=== PATIENT | female | born 1965 | race Caucasian/White ===

== ENCOUNTER → 2019-09-26 11:47 | Outpatient (BNVA) | payer OTHER, SELFPAY | PROVIDERS: Visit Provider Nurse Practitioner | DX: M79.641 Pain in right hand (principal); S39.012A Strain of muscle, fascia and tendon of lower back, initial encounter; M48.061 Spinal stenosis, lumbar region without neurogenic claudication; M47.816 Spondylosis without myelopathy or radiculopathy, lumbar region; X58.XXXA Exposure to other specified factors, initial encounter | CPT/HCPCS: 72100; 73130 ==

== ENCOUNTER → 2019-11-09 11:56 | Outpatient (BNVA) | payer OTHER, SELFPAY | PROVIDERS: Visit Provider Nurse Practitioner Family | DX: I10 Essential (primary) hypertension (principal); D64.9 Anemia, unspecified; G25.81 Restless legs syndrome; E03.9 Hypothyroidism, unspecified; E11.9 Type 2 diabetes mellitus without complications | CPT/HCPCS: 80053; 81001; 82607; 82728; 83036; 83540; 84439; 84443; 84481; 85025 ==

== ENCOUNTER → 2019-11-14 10:45 | Outpatient (BNVA) | payer OTHER, SELFPAY | PROVIDERS: Visit Provider Nurse Practitioner Family | DX: E78.5 Hyperlipidemia, unspecified (principal); M54.9 Dorsalgia, unspecified; M62.830 Muscle spasm of back; E11.9 Type 2 diabetes mellitus without complications | CPT/HCPCS: 80061 ==

== ENCOUNTER → 2020-06-10 09:47 | Outpatient (BNVA) | payer OTHER, SELFPAY | PROVIDERS: Visit Provider Nurse Practitioner Family | DX: E11.9 Type 2 diabetes mellitus without complications (principal); I10 Essential (primary) hypertension; E03.9 Hypothyroidism, unspecified; E78.5 Hyperlipidemia, unspecified; E55.9 Vitamin D deficiency, unspecified; E78.2 Mixed hyperlipidemia | CPT/HCPCS: 80053; 80061; 81003; 82306; 83036; 84443; 85025 ==

== ENCOUNTER 2020-07-01 10:27 | Outpatient (CLI) | payer OTHER, SELFPAY ==
--- NOTE | 2020-07-01 10:30 | MM_ITS ---
WS: [id number] Exam: [place] [id number] Date/Time of Exam: 07/01/2020 10:31 AM Reason For Exam: Z12.31 - Encounter for screening mammogram for malignant neoplasm of breast VIEWS: MLO and CC views both breasts. Comparison made with prior exam of 09/11/2015. Findings: There was no sign of mass, architectural distortion or suspicious calcification in either breast. Sc attered fibroglandular densities MM/[place] [id number] Impression: BI-RADS: 2-Benign FOLLOW-UP: 1 Year Follow-up This mammogram was also analyzed by the Computer Aided Detection System R2 Imag e Flower Grower.
== END 2020-07-01 10:28 | disposition home or self-care (01) ==
LOC: RADSHAW 10:28
PROVIDERS: PCP Nurse Practitioner Family; Visit Provider Nurse Practitioner Family
DX: Z12.31 Encounter for screening mammogram for malignant neoplasm of breast (principal)
CPT/HCPCS: 77067

== ENCOUNTER → 2020-10-24 16:43 | Outpatient (BNVA) | payer OTHER, SELFPAY | PROVIDERS: PCP Nurse Practitioner Family; Visit Provider Nurse Practitioner Family | DX: M25.562 Pain in left knee (principal) | CPT/HCPCS: 73562 ==

== ENCOUNTER 2020-11-11 10:51 | Outpatient (CLI) | payer OTHER, SELFPAY ==
--- NOTE | 2020-11-11 11:00 | MR_ITS ---
WS: [id number] MRI LEFT KNEE HISTORY: M25.562 - Pain in left knee COMPARISON: 10/24/2020 Anterior cruciate ligament: Intact. Posterior cruciate ligament: Intact. Medial collateral ligament: Intact. Posterior lateral corner structures: Intact. Medial menisci: Mild fraying of the posterior meniscus towards the intercondylar notch. Lateral meniscus: Intact. Normal signal, size and shape. Extensor mechanism: Distal quadriceps tendon and patellar tendons are intact. Fluid and soft tissue: There is a small suprapatellar joint effusion. Small amount of edema within th e soft tissues over the anterior knee. No Castro's cyst. Osseous and articular structures: Patellofemoral compartment: Normal. Medial compartment: Very minimal fissuring and thinning of the cartilage in the medial compartment to wards the intercondylar notch. Superficial cartilaginous defect in the femoral condyle towards the in tercondylar notch. There is a lobulated fluid collection which is multilobulated multicystic lateral to the femoral condyle measuring 2.5 x 0.9 cm. Closely associated with the semimembranosus bursa and the tibial collateral ligament. Lateral compartment: Negative. MR/MR knee LT wo con* [id number] IMPRESSION: 1. Lobulated cystic mass adjacent to the medial femoral condyle associated wit h the semimembranosus and tibial collateral ligaments. Probably representing a distended bursa or ganglion. 2. Minimal chondromalacia in the medial femoral condyle towards the intercondy lar notch. The adjacent posterior medial meniscus demonstrates fraying along th e superior articular surface. 3. No meniscal tear is identified.
== END 2020-11-11 10:52 | disposition home or self-care (01) ==
LOC: RADSHAW 10:53
PROVIDERS: PCP Nurse Practitioner Family; Visit Provider Nurse Practitioner Family
DX: M25.562 Pain in left knee (principal)
CPT/HCPCS: 73721

== ENCOUNTER → 2020-11-14 11:28 | Outpatient (BNVA) | payer OTHER, SELFPAY | PROVIDERS: PCP Nurse Practitioner Family; Visit Provider Nurse Practitioner Family | DX: E11.9 Type 2 diabetes mellitus without complications (principal); E03.9 Hypothyroidism, unspecified; E78.2 Mixed hyperlipidemia; H60.503 Unspecified acute noninfective otitis externa, bilateral; M25.562 Pain in left knee | CPT/HCPCS: 80053; 80061; 83036; 84443; 85025 ==

== ENCOUNTER → 2020-12-04 11:38 | Outpatient (BNVA) | payer OTHER, SELFPAY | PROVIDERS: PCP Nurse Practitioner Family; Visit Provider Obstetrics & Gynecology | DX: K59.00 Constipation, unspecified (principal); N39.3 Stress incontinence (female) (male); N81.10 Cystocele, unspecified; Z20.822 Contact with and (suspected) exposure to COVID-19; N81.6 Rectocele | CPT/HCPCS: 87635 ==

== ENCOUNTER 2020-12-10 08:58 | Observation (INO) | payer OTHER, SELFPAY ==
--- NOTE | 2020-12-05 12:18 | ECG_ITS ---
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 Measurements Intervals [place] Rate: 86 P: 37 HI: 157 QRS: 39 QRSD: 94 T: 40 QT: 377 QTc: 452 Interpretive Statements SINUS RHYTHM LOW QRS VOLTAGE IN PRECORDIAL LEADS [QRS DEFLECTION < 1.0 mV IN CHEST LEADS] No previous ECG available for comparison Electronically Signed On 12-05-2020 18:41:05 CDT by Db Ayers M.D. [id number]
[2020-12-05 12:26] VITALS: BMI 29.8
[2020-12-05 13:12] LABS: Basophils # 0.1 10^3/uL (0.0-0.1); Basophils % 0.6 %; Eosinophils # 0.2 10^3/uL (0.0-0.8); Eosinophils % 1.4 %; Hematocrit 44.1 % (37.0-47.0); Hemoglobin 14.3 g/dL (11.5-15.3); Lymphocytes # 5.5 10^3/uL (0.8-4.8); Lymphocytes % 48.5 %; Mean Corpuscular HGB Conc 32.4 g/dL (30.0-36.0); Mean Corpuscular Hemoglobin 27.7 pg (28.0-34.0); Mean Corpuscular Volume 85.3 fL (81-99); Mean Platelet Volume 10.9 fL (7.4-10.4); Monocytes # 0.7 10^3/uL (0.2-0.9); Neutrophils # 4.94 10^3/uL (1.8-7.7); Neutrophils % 43.2 %; Nucleated Red Blood Cells % 0 %; Platelet Count 278 10^3/cmm (130-400); Red Blood Count 5.17 10^6/uL (4.1-5.3); Red Cell Distribution Width 13.3 % (12.1-15.1); White Blood Count 11.4 10^3/uL (4.0-10.0)
--- NOTE | 2020-12-05 13:22 | ANES.PREANE2 ---
Pre-Anesthetic Assessment Pre-Anesthetic Assessment: Height/Weight: Height 1.68 m Weight 83.915 kg Preop Diagnosis: vaginal vault prolapse, stress incontinence Proposed Procedure: Operation Date: 12/10/20 07:00 Proposed Procedures p Perineorrhaphy posterior colporraphy 29592 27635 73346 N39.3 N81.10 K59.00(Not Applicable) - MD tim Aceves Sling(Not Applicable) - Renee Bower MD s poss Anterior Repair Anterior Colporrhaphy(Not Applicable) - Renee Bower MD Was Beta Shelly taken within 24 hours: N/A Was Clonidine taken within 24 hours: N/A Social: Social History: No alcohol and No tobacco Exam: Pre-Anes Outpt Exam: alert, oriented x 3, clear to auscultation bilaterally and regular rate & rhythm Airway: Submandibular: WNL Cervical ROM: WNL MP: 2 Dentition: Full Metabolic: Metabolic: DM, Hyperlipidemia and Thyroid Musc/skel: Musc/skel: Lower Back Pain Anesthetic Plan: ASA status: 3 Anesthesia: General Risk of > 500 ml blood loss (7ml/kg in children): No PFSH Anesthesia PFSH: Medical History Breast cancer screening by mammogram Chronic back pain Cystocele with rectocele DM type 2 (diabetes mellitus, type 2) Hypothyroid Left knee pain Mixed hyperlipidemia Otitis externa Family History Mother Diabetes Hyperlipidemia Congestive heart failure Sister Diabetes Congestive heart failure Brother Diabetes Son Hyperlipidemia Social History (Updated 12/05/20 @ 11:05 by Nuris Mooney LPN) Smoking and tobacco status: never smoked Second hand smoke exposure: No Smoking risk assessment/counseling performed?: No Alcohol intake: current Alcohol intake frequency: holidays/special occasions only Desire information about alcohol rehabilitation?: No Counseling given: No Substance/Drug Use: never Data Anesthesia CBC & Chem 7: 12/05/20 12:54 12/05/20 12:54 Other Labs: Laboratory Results - last 48 hr 12/05/20 12:54 WBC 11.4 H RBC 5.17 Hgb 14.3 Hct 44.1 MCV 85.3 MCH 27.7 L MCHC 32.4 RDW 13.3 Plt Count 278 MPV 10.9 H Neut % (Auto) 43.2 Lymph % (Auto) 48.5 [place] % (Auto) 6.0 Eos % (Auto) 1.4 Baso % (Auto) 0.6 Neut # (Auto) 4.94 Lymph # (Auto) 5.5 H [place] # (Auto) 0.7 Eos # (Auto) 0.2 Baso # (Auto) 0.1 Nucleated RBC % (auto) 0 Nucleated RBCs # 0.0 Cardiac Studies: No Data to Display
[2020-12-05 13:31] LABS: Anion Gap 17.1 (5-19); Blood Urea Nitrogen 14 mg/dL (6-20); Calcium 8.5 mg/dL (8.5-10.5); Carbon Dioxide 25 mmol/L (22-29); Chloride 97 mmol/L (98-107); Glucose 156 mg/dL (65-115); Osmolality Calculated 284 mOsm/kg (285-295); Potassium 4.1 mmol/L (3.5-5.1); Sodium 135 mmol/L (136-145)
[2020-12-10] VITALS (14 sets, daily range): BP systolic 97–146; BP diastolic 59–78; PULSE 80–99; RESP 13–18; TEMP 36.4–36.9; O2SAT 93–98
[2020-12-10] MEDS: acetaminophen 1,000 MG/100 ML PIGGYBACK 400 MG IV (06:30)
[2020-12-10] MEDS: sodium chloride 0.9% 1,000 ML 30 ML IV (06:30)
[2020-12-10] MEDS: gabapentin 300 mg Capsule PO (06:31)
[2020-12-10] MEDS: CELEcoxib 200 mg Capsule 400 MG PO (06:31)
[2020-12-10] MEDS: ketorolac 30 mg/mL INJ IVP ×3 (06:31→17:47)
[2020-12-10 06:45] LABS: Glucose Point of Care 214 mg/dL (70-110)
[2020-12-10] MEDS: insulin regular-human 100 units/1 mL 5 UNIT IVP (06:55)
--- NOTE | 2020-12-10 06:55 | P.ANESUD_ITS ---
Pre-Anesthetic Update Pre-Anesthetic Assessment: Date of Surgery/Procedure: 12/10/20 Preop Natalie gnosis: vaginal vault prolapse, stress incontinence Proposed Procedure: Operation Date: 12/10/20 07:00 Proposed Procedures p Perineorrhaphy posterior colporraphy 11027 44945 62352 N39.3 N81.10 K59.00(Not Applicable) - Renee Bower MD s Sling(Not Applicable) - Renee Bower MD s poss Anterior Repair Anterior Colporrhaphy(Not Applicable) - Renee Bower MD Any changes to Pre-Anesthetic Assessment?: No Last Intake: Intake Last Liquid Date 12/09/20 Last Liquid Time 23:00 Last Solid Date 12/09/20 Last Solid Time 23:00 Labs Last 48hrs: Laboratory Results - last 48 hr 12/10/20 06:41 POC Glucose 214 H Vitals: Temperature 98.4 F 12/10/20 06:08 Temperature Source Temporal Artery S can 12/10/20 06:08 Pulse Rate 94 12/10/20 06:08 Respiratory Rate 18 12/10/20 06:08 Blood Pressure 146/78 12/10/20 06:08 Blood Pressure Mary n 100 12/10/20 06:08 Pulse Oximetry 98 12/10/20 06:08 Oxygen Delivery Me thod 12/10/20 06:08 Exam: Pre-Anes Outpt Exam: alert, oriented x 3, clear to auscultation bilaterally and regular rate & rhythm Cardiac Studies: No Data to Display
--- NOTE | 2020-12-10 06:55 | W.PM.OPSUD ---
Surgery/Procedure H&P Update DATE OF PROCEDURE: December 10, 2020 DATE H&P PERFORMED: 12/05/20 H&P UPDATE INFORMATION: I have reviewed H&P completed within last 30 days, I have examined patient prior to procedure and No changes to prior documentation PREOP DIAGNOSIS: vaginal vault prolapse, stress incontinence PLANNED PROCEDURE: Operation Date: 12/10/20 07:00 Proposed Procedures p Perineorrhaphy posterior colporraphy 63651 [id number] 92882 N39.3 N81.10 K59.00(Not Applicable) - Renee Bower MD s Sling(Not Applicable) - Renee Bower MD s poss Anterior Repair Anterior Colporrhaphy(Not Applicable) - Renee Bower MD
--- NOTE | 2020-12-10 08:45 | PM.OP ---
Operative Report Date of procedure: December 10, 2020 Pre-op Diagnosis: vaginal vault prolapse, stress incontinence Post-op diagnosis: same Post-op Findings: Repaired vaginal vault with suburethral sling and no incontinence Procedure Done: posterior colporrhaphy, perineorrhaphy and sub urethral sling Implants: altis suburethral sling Pathology: none sent Surgeon: Renee Bower Anesthesia: General Estimated blood loss (mL): 30 IV fluids (mL): 700 Urine output (mL): 300 Complications: none Condition: stable Disposition: PACU Brief History: The patient presented about 3 months ago for complaints of urinary incontinence and a large bulge from her vagina Procedure: The patient was taken to the operating room, where monitored anesthesia was administered and found to be adequate. She was prepped and draped in the normal sterile fashion in the dorsal lithotomy position in [facility]. A osorio catheter was placed. The vaginal cuff was identified and an allis clamp was placed in the midline of the vaginal mucosa, approximately 2 cm posterior to the cuff. A second allis clamp was placed in the midline of the vaginal mucosa, approximately 3 cm from the introitus. An incision was made in the midline from clamp to clamp. The vaginal mucosa was clamped laterally and the rectocele dissected off of the rectovaginal fascia. The rectocele was packed away and the rectovaginal fascia brought together in the midline with figure of 8 interrupted sutures of O-Vicryl. The packing was removed and the excess vaginal tissue trimmed. The incision was repaired with 0-Vicryl in a running fashion. Attention was then turned to the perineorrhphy. Allis clamps were placed on the posterior fourchette. A 3 cm wedge of the fourchette was removed. This was repaired in the usual fashion with O-vicryl. Attention was then turned to the sling procedure. An Allis clamp was placed approximately 1 cm posterior to the urethra and another placed approximately 3 cm distal from that. An incision was made between the 2. The tissue was sharply dissected along the pubic ramus bilaterally. The sling was placed on the left first by going through the incision and attaching the sling into the obturator foramen tissue. The right side was performed in a similar fashion, placing the applicator through the incision and attaching to the obturator foramen tissue. The incision was repaired with 2-0 Vicryl in a running locked fashion. The Osorio catheter was removed and the cystoscope advanced into the bladder. Indigo carmine was given and bilateral spill of blue fluid was noted from both ureteral orifices. There was no mesh noted to be in the bladder. Vaginal packing was placed. The patient tolerated the procedure well. Sponge lap and needle counts were correct x3. She was taken to the recovery room in stable condition.
--- NOTE | 2020-12-10 09:03 | P.PCN_ITS ---
PACU note PACU note: VSS, Good respiratory effort, report to ICE BAG ASSEMBLER Post-Anesthesia Exam: awake
--- NOTE | 2020-12-10 09:03 | PM.PACU ---
PACU note PACU note: VSS, Good respiratory effort, report to PRODUCTION GRAPHIC DESIGNER Post-Anesthesia Exam: awake
[2020-12-10] MEDS: docusate sodium 100 mg Capsule PO ×2 (10:36→17:46)
[2020-12-10] MEDS: lactated ringers 1,000 ML 125 ML IV ×2 (10:37→17:46)
[2020-12-10 17:12] LABS: Glucose Point of Care 254 mg/dL (70-110)
[2020-12-10] MEDS: metformin 500 mg Tablet 1000 MG PO (17:46)
--- NOTE | 2020-12-10 21:18 | ANE.PACU2 ---
Inpatient post-anesthesia follow up: Airway intact: Yes Vital signs: Temperature 98.1 F Pulse Rate 84 Respiratory Rate 18 Blood Pressure 111/69 Pulse Oximetry 98 Oxygen Delivery Me thod Room Air Oxygen Flow Rate Fraction of Inspir ed Oxygen Hydration adequate: Yes Nausea and vomiting: No Pain level: 2 Mental status: Baseline
[2020-12-11] MEDS: lactated ringers 1,000 ML 125 ML IV ×2 (00:40→08:40)
[2020-12-11 03:30] VITALS: BP 114/66; PULSE 87; RESP 18; TEMP 36.7; O2SAT 97
--- NOTE | 2020-12-11 04:38 | PC.PHAR ---
pt states she takes care of her own medications-some medications entered dont pull up on ext med history but pt states she takes them-notes are made in the pharmacy comments of each rx
[2020-12-11 06:33] LABS: Hematocrit 33.3 % (37.0-47.0); Hemoglobin 10.8 g/dL (11.5-15.3); Mean Corpuscular HGB Conc 32.4 g/dL (30.0-36.0); Mean Corpuscular Hemoglobin 27.3 pg (28.0-34.0); Mean Corpuscular Volume 84.1 fL (81-99); Mean Platelet Volume 11.2 fL (7.4-10.4); Platelet Count 212 10^3/cmm (130-400); Red Blood Count 3.96 10^6/uL (4.1-5.3); Red Cell Distribution Width 13.3 % (12.1-15.1); White Blood Count 14.8 10^3/uL (4.0-10.0)
[2020-12-11 07:36] VITALS: BP 109/66; PULSE 90; RESP 18; TEMP 36.9; O2SAT 99
[2020-12-11] MEDS: metformin 500 mg Tablet 1000 MG PO (08:40)
[2020-12-11] MEDS: levothyroxine 50 mcg Tablet PO (08:40)
[2020-12-11] MEDS: docusate sodium 100 mg Capsule PO (08:40)
[2020-12-11] MEDS: fenofibrate 145 mg Tablet PO (08:40)
[2020-12-11] MEDS: ibuprofen 800 mg tablet PO (08:40)
[2020-12-11] MEDS: levothyroxine 200 mcg Tablet PO (08:40)
--- NOTE | 2020-12-11 08:43 | PC.NURSE ---
Bed bath and linen change When the patient was asked about bed bath and linen change the patient refused. The patients reason was due to that she thought she was going to be discharged today.
--- NOTE | 2020-12-11 10:00 | P.DS_ITS ---
Discharge Providers Date of Admission: 12/10/20 08:58 Date of Discharge: December 11, 2020 Attending Provider at Admission: Renee Bower MD Attending Provider at Discharge: Renee Bower MD Primary Care Provider: SHANTE Finney Diagnoses at Discharge Discharge Diagnosis (1) Postoperative state: Status: Acute Reason for Visit Reason for Visit: stress incontinence Hospital Course Hospital Course The patient was admitted for surgery. She did well postoperatively and was ready for discharge on day #1 Physical Exam Urinary Catheter Management^: F: Cath Placed During This Visit: yes Reason for Continuing Indwelling Catheter: Perioperative Use in Selected Surgeries Urinary Catheter Date of Insertion: 12/10/20 Urinary Catheter Time of Insertion: 07:29 Discharge Data Data Completed and Pending: Pending at discharge Category Date Time Status ES surgery / GI i mages Routine Exams 12/10/20 06:40 Ordered Labs from last 24 hours 12/11/20 12/10/20 06:20 17:08 WBC 14.8 H RBC 3.96 L Hgb 10.8 L Hct 33.3 L MCV 84.1 MCH 27.3 L MCHC 32.4 RDW 13.3 Plt Count 212 MPV 11.2 H POC Glucose 254 H Vitals: Last Vital Signs Temp 98.5 F 12/11/20 07:36 Pulse 90 12/11/20 07:36 Resp 18 12/11/20 07:36 BP 109/66 12/11/20 07:36 Pulse Ox 99 12/11/20 07:36 Discharge Plan Discharge Patient Disposition: Home Condition: Stable Prescriptions: New hydrocodone-acetaminophen 5-325 mg Tablet 1 tab PO Q6H PRN (Reason: Moderate To Severe Pain) Qty: 17 RF: 0 Continued omega-3 fatty acids [Fish Oil Concentrate] 1,000 mg capsule 3,000 mg PO BEDTIME RF: 0 meloxicam 7.5 mg tablet 7.5 mg PO .as needed PRN (Reason: Pain) RF: 0 tramadol 50 mg tablet 50 mg PO BID PRN (Reason: back pain) 30 Days Qty: 60 RF: 1 cyclobenzaprine 10 mg tablet 10 mg PO TID PRN (Reason: Pain) RF: 0 Ozempic 1 mg/dose (2 mg/1.5 mL) pen injector 1 mg SUBCUT .weekly 90 Days Qty: 4.5 RF: 3 metformin 1,000 mg tablet 1,000 mg PO BID Qty: 180 RF: 3 cholecalciferol (vitamin D3) 1,250 mcg (50,000 unit) capsule 50,000 unit PO .weekly Qty: 12 RF: 3 levothyroxine 50 mcg Tablet 50 mcg PO DAILY@09 RF: 0 levothyroxine 200 mcg Tablet 200 mcg PO DAILY@09 RF: 0 fluticasone propionate 50 mcg/actuation [place],Suspension 1 spray INTRANASAL DAILY PRN (Reason: Allergy Symptoms) RF: 0 ciprofloxacin-dexamethasone 0.3-0.1 % drops,suspension 4 drp otic (ear) BID PRN (Reason: unknown) RF: 0 fenofibrate nanocrystallized 145 mg Tablet 145 mg PO DAILY@09 RF: 0 Multivitamins 28 mg iron- 800 mcg Tablet 1 tab PO PRN RF: 0 Jardiance 25 mg tablet 25 mg PO DAILY@09 RF: 0 Discharge Orders: Discharge Order (Routine); Ordered 12/11/20 Ordered By: Renee Bower Patient Instructions: Opioid Safety Discharge Attestations Time Spent in Discharge Care*: less than 30 min Quality Metrics Clinical Quality Measures During this hospital stay, did patient experience: None Coding Level of Care Code Acute Chg FW DC note Diagnoses Postoperative state Z98.890
--- NOTE | 2020-12-11 10:18 | PC.CHAP ---
Pastoral Care Encounter/Spiritual Assessment Type of Contact [] Declined studio receptionist visit [] Patient/Family/Request visit [] Outpatient visit [] Follow-up visit [] Physician referral [] Code/Alert [x] Routine visit [] Staff referral [] Actively dying [] Patient sleeping [] Family support [] [] Out of room [] Palliative care [] [] Receiving care in room [] Pre-surgical visit [] Trauma [] Long length of stay [] ICU visit [] Other: Relational/Emotional Strength [x] Patient feels connected with others/family/visitors/staff [] Distress [] Loneliness/isolation [] Abandonment Spirituality of Patient [x] Person of Kristine [x] Attends Shinto of their Kristine [x] Believes in Prayer [] Reads Bible or Latter Day materials [] There are Spiritual issues to be addressed Hand Wood Sander Interventions [x] Prayer [x] Active listening [] Non-anxious presence [] Spiritual/emotional support [] Crisis/trauma care [] Spiritual counseling [] Bereavement support [] Provided bereavement packet [] Provided Bible/devotional materials [] Provided toy/stuffed animal, coloring book to patient or family member [] Provided Communion [] Anointing/[place] [] Salvation [x] Completed spiritual assessment [] Other: Impact on Illness or Injury [] Angry [] Fearful [] Anxious [] Often cries [] Exhaustion [] Unable to work [] Unable to attend jew [] Unable to walk/stand [] Unable to read [] Unable to drive [] Unable to eat/drink [] Unable to sleep [] Unable to be with family [] Patient intubated [] Other: Summary Time spent with patient 15 min doing good getteing ready to go home
--- NOTE | 2020-12-11 10:53 | PC.NURSE ---
osorio dc 9.5 ml of sterile water removed from bulb Osorio removed without difficulty patient tolerated well
[2020-12-11 11:07] VITALS: BP 124/76; PULSE 85; RESP 18; TEMP 36.7; O2SAT 99
--- NOTE | 2020-12-11 15:44 | PC.NURSE ---
PT HAS DONE WELL FOR ME TODAY. NO COMPLAINTS OF PAIN OR ANY BLEEDING. DR ULLOA CAME IN TO SEE PT. DOCTOR REMOVED VAGINAL PACKING. SITE LOOKS GOOD, STILL NO BLEEDING. ORDERS TO REMOVE THE MODI WERE GIVEN. A GERIATRIC NURSE PRACTITIONER DID THIS TASK. PT TOLERATED THIS WELL. THIS NURSE HAS BEEN LOOKING FOR THE BLADDER SCANNER ALL MORNING AND WAS NOT ABLE TO OBTAIN IT UNTIL 1430 THIS AFTERNOON. PT HAS VOIDED THREE TIMES. PT LAST VOIDED AT ABOUT 1450. THIS NURSE BLADDER SCANNED PT AT 1500. ZERO ML SHOWED UP REPEATEDLY ON BLADDER SCANNER. DISCHARGE PAPERWORK WAS GONE OVER WITH PT. ALL QUESTIONS WERE ANSWERED. PT'S MEDICATION WAS BOUGHT TO THE BEDSIDE. IV WAS REMOVED. PT TOLERATED THIS WELL. CATHETER TIP INTACT. PT WAS WHEELED OUT BY THIS NURSE. PT SAFELY DISCHARGED FROM HOSPITAL AT 1515.
[2020-12-11 15:49] VITALS: BP 124/76; PULSE 85; RESP 18; TEMP 36.7; O2SAT 99
== END 2020-12-11 15:15 | disposition home or self-care (01) ==
LOC: MEDSURG 09:00
PROVIDERS: Admitting Provider Obstetrics & Gynecology; PCP Nurse Practitioner Family; Visit Provider Obstetrics & Gynecology
PROC: 0HQ9XZZ Repair Perineum Skin, External Approach (ICD-10-PCS; CPT 57260; principal; 2020-12-10 07:00)
PROC: (CPT 57288; 2020-12-10 07:00)
DX: N81.10 Cystocele, unspecified (principal); N39.3 Stress incontinence (female) (male); E11.9 Type 2 diabetes mellitus without complications; E78.5 Hyperlipidemia, unspecified; E03.9 Hypothyroidism, unspecified; E78.2 Mixed hyperlipidemia; Z79.84 Long term (current) use of oral hypoglycemic drugs
CPT/HCPCS: 57260; 57288; 36415; 36416; 80048; 82962; 85025; 85027; 93005; 96365; 96374; 96375; C1713; G0378; J0690; J1100; J1815; J1885; J2405; J2704; J3010; J3490; J7030

== ENCOUNTER → 2021-01-23 11:32 | Outpatient (BNVA) | payer OTHER, SELFPAY | PROVIDERS: PCP Nurse Practitioner Family; Visit Provider Obstetrics & Gynecology | DX: Z34.90 Encounter for supervision of normal pregnancy, unspecified, unspecified trimester (principal); Z98.890 Other specified postprocedural states | CPT/HCPCS: 81000 ==

== ENCOUNTER 2021-01-30 07:50 | Outpatient (CLI) | payer OTHER, SELFPAY ==
--- NOTE | 2021-01-30 08:15 | XR_ITS ---
WS: [id number] KUB WITH IVP CLINICAL INFORMATION: Bladder surgery. Incontinence. TECHNIQUE: Farm Facility Manager imaging followed by AP and oblique imaging at 0, 5, 6, 10, 11, and 15 minutes post a dministration 100 cc's of contrast. Post void imaging. FINDINGS: Normal nephrographic phase at 0 minutes with normal parenchymal uptake. Normal bilateral re nal collecting systems. No hydronephrosis. Normal renal papillae and calyces. Proximal ureters are no rmal in appearance. No ureterectasis. Normal course of both ureters. Both ureters are visualized at 1 0 to 15 minutes. Normal filling of the urinary bladder. Normal bladder contour. No evidence of cystoc maxim. Normal emptying on the post void images with minimal residual. Normal bowel gas pattern. Scattered air and normal caliber small and large bowel. No significant rosalba l distention.Mild lumbar curve convex left. Disc space narrowing L4-L5 and L5-S1. Pelvic phleboliths. XR/XR IVP w KUB [id number] Impression: 1. Normal IVP. 2. Both renal collecting systems and ureters are normal in appearance. No hydr onephrosis or ureterectasis. 3. Normal bladder contour. No evidence of bladder leak or significant cystocel e. 4. Normal bladder emptying with minimal post void residual.
[2021-01-30 08:31] LABS: Blood Urea Nitrogen 11 mg/dL (6-20); Glomerular Filtration Rate 129.1 mL/min (90-130)
[2021-01-30] MEDS: iohexol 300 mg/mL 50 mL Btl IV (09:22)
== END 2021-01-30 07:51 | disposition home or self-care (01) ==
LOC: RAD 07:52
PROVIDERS: PCP Nurse Practitioner Family; Visit Provider Obstetrics & Gynecology
DX: N39.3 Stress incontinence (female) (male) (principal); N39.41 Urge incontinence; Z98.890 Other specified postprocedural states
CPT/HCPCS: 36415; 74400; 82565; 84520

== ENCOUNTER → 2021-06-17 10:49 | Outpatient (BNVA) | payer SELFPAY | PROVIDERS: PCP Nurse Practitioner Family; Referring Provider Family Medicine; Visit Provider Dermatology | DX: Z01.89 Encounter for other specified special examinations (principal) ==

== ENCOUNTER → 2021-08-13 14:41 | Outpatient (BNVA) | payer OTHER, SELFPAY | PROVIDERS: PCP Nurse Practitioner Family; Visit Provider Nurse Practitioner Family | DX: N39.3 Stress incontinence (female) (male) (principal) | CPT/HCPCS: 81003 ==

== ENCOUNTER → 2021-09-26 07:53 | Outpatient (BNVA) | payer OTHER, SELFPAY | PROVIDERS: PCP Nurse Practitioner Family; Visit Provider Urology | DX: N39.46 Mixed incontinence (principal) | CPT/HCPCS: 81003 ==

== ENCOUNTER 2021-10-28 07:47 | Outpatient (CLI) | payer OTHER, SELFPAY ==
--- NOTE | 2021-10-28 07:50 | MM_ITS ---
WS: [id number] Bilateral screening 3D tomosynthesis digital mammogram, 10/28/2021 Clinical Data: Z12.39 - Encounter for other screening for malignant neop... Comparison: 07/01/2020, 09/11/2015, 09/15/2013. Findings: The breast parenchymal pattern shows fibroglandular tissue. No spiculated masses or clustered calcifi cations are seen. There are no secondary signs of carcinoma. MM/[place] [id number] Impression: 1. Negative bilateral mammogram unchanged. 2. Recommend annual screening mammograms. BIRADS: 1-Negative FOLLOW UP: 1 Year Follow-up The CAD case checker was used.
== END 2021-10-28 07:48 | disposition home or self-care (01) ==
LOC: RAD 07:48
PROVIDERS: PCP Nurse Practitioner; Visit Provider Nurse Practitioner
DX: Z12.39 Encounter for other screening for malignant neoplasm of breast (principal)
CPT/HCPCS: 77063; 77067

== ENCOUNTER → 2021-12-16 11:15 | Outpatient (BNVA) | payer OTHER, SELFPAY | PROVIDERS: PCP Nurse Practitioner; Visit Provider Dermatology | DX: E78.2 Mixed hyperlipidemia (principal); E03.9 Hypothyroidism, unspecified; E11.9 Type 2 diabetes mellitus without complications | CPT/HCPCS: 83721 ==

== ENCOUNTER → 2022-03-17 11:31 | Outpatient (BNVA) | payer SELFPAY | PROVIDERS: PCP Nurse Practitioner; Visit Provider Dermatology | DX: E78.2 Mixed hyperlipidemia (principal); E11.9 Type 2 diabetes mellitus without complications | CPT/HCPCS: 83721 ==

== ENCOUNTER → 2022-03-31 15:31 | Outpatient (BNVA) | payer OTHER, SELFPAY | PROVIDERS: PCP Nurse Practitioner; Visit Provider Urology | DX: N39.46 Mixed incontinence (principal); T83.712A Erosion of implanted urethral mesh to surrounding organ or tissue, initial encounter; X58.XXXA Exposure to other specified factors, initial encounter | CPT/HCPCS: 81003 ==

== ENCOUNTER → 2022-07-02 10:41 | Outpatient (BNVA) | payer OTHER, SELFPAY | PROVIDERS: PCP Nurse Practitioner; Visit Provider Nurse Practitioner | DX: Z00.00 Encounter for general adult medical examination without abnormal findings (principal) | CPT/HCPCS: 80053; 80061; 82306; 83036; 83721; 84443; 85025 ==

== ENCOUNTER → 2022-10-14 11:23 | Outpatient (BNVA) | payer OTHER, SELFPAY | PROVIDERS: PCP Nurse Practitioner; Visit Provider Nurse Practitioner | DX: R21 Rash and other nonspecific skin eruption (principal) | CPT/HCPCS: 86003; 86008 ==

== ENCOUNTER → 2022-10-27 10:33 | Outpatient (BNVA) | payer OTHER, SELFPAY | PROVIDERS: PCP Nurse Practitioner; Visit Provider Nurse Practitioner | DX: R21 Rash and other nonspecific skin eruption (principal); L30.9 Dermatitis, unspecified | CPT/HCPCS: 85025; 85651; 86003; 86038; 86140; 86431 ==

== ENCOUNTER → 2023-03-31 11:07 | Outpatient (BNVA) | payer OTHER, SELFPAY | PROVIDERS: PCP Nurse Practitioner; Visit Provider Nurse Practitioner Family | DX: E11.9 Type 2 diabetes mellitus without complications (principal); E78.2 Mixed hyperlipidemia; E03.9 Hypothyroidism, unspecified | CPT/HCPCS: 80053; 80061; 83036; 83516; 83721; 85025 ==

== ENCOUNTER 2023-05-05 09:21 | Outpatient (CLI) | payer OTHER, SELFPAY ==
--- NOTE | 2023-05-05 09:30 | MM_ITS ---
WS: [id number] BILATERAL SCREENING DIGITAL TOMOSYNTHESIS MAMMOGRAM WITH CAD HISTORY: SCREENING COMPARISON: 09/15/2013, 10/28/2021, 07/01/2020 Bilateral CC and MLO views with tomosynthesis and synthetic mammography submitted. Computer aided det ection analyzed. Breast composition: The breasts are heterogeneously dense, which may obscure small masses. No suspici ous masses, microcalcifications or architectural distortion. There are numerous stable masses and asy mmetries within each breast. These been present over several prior years. No distortion. IMPRESSION: MM/[place] [id number] BI-RADS: 2-Benign FOLLOW UP: 1 Year Follow-up
== END 2023-05-05 09:22 | disposition home or self-care (01) ==
LOC: MOBLMAM 09:40
PROVIDERS: PCP Nurse Practitioner; Visit Provider Nurse Practitioner
DX: Z12.31 Encounter for screening mammogram for malignant neoplasm of breast (principal)
CPT/HCPCS: 77063; 77067

== ENCOUNTER → 2023-06-25 11:08 | Outpatient (BNVA) | payer OTHER, SELFPAY | PROVIDERS: PCP Nurse Practitioner; Visit Provider Nurse Practitioner Family | DX: E78.2 Mixed hyperlipidemia (principal); E11.9 Type 2 diabetes mellitus without complications; E03.9 Hypothyroidism, unspecified; E55.9 Vitamin D deficiency, unspecified | CPT/HCPCS: 80053; 80061; 81003; 82306; 83036; 83721; 84443; 85025; 87086 ==

== ENCOUNTER → 2023-08-20 11:40 | Outpatient (BNVA) | payer OTHER, SELFPAY | PROVIDERS: PCP Nurse Practitioner; Visit Provider Nurse Practitioner Family | DX: M10.9 Gout, unspecified (principal) | CPT/HCPCS: 83036; 84550 ==

== ENCOUNTER 2023-11-18 08:35 | Outpatient (CLI) | payer OTHER, SELFPAY ==
--- NOTE | 2023-11-18 08:45 | US_ITS ---
WS: [id number] THYROID ULTRASOUND HISTORY: E03.9 - Hypothyroidism, unspecified COMPARISON: None available. Right lobe: 1.3 cm x 1.7 cm x 4.6 cm (w x ap x l). Volume: 5.0 cm3. Heterogeneous gland with a few small cysts. No focal nodule. No increased vascularity. Left lobe: 1.2 cm x 1.6 cm x 4.5 cm (w x ap x l). Volume: 4.3 cm3. Isoechoic nodule in the inferior gland measures 1.6 x 1.5 x 1.6 cm. Poorly defined nodule. Mild incre ased vascularity. There is a surrounding vessel. Isthmus: 0.3 cm. US/US thyroid [id number] IMPRESSION: 1. TI-RADS 4; nodule in the inferior pole of the LEFT thyroid. Poorly visualiz ed nodule is isoechoic. Nodule is also surrounded by a large vessel. Suggest re peat ultrasound in 6 to 12 months. If this nodule continues to increase in size ultrasound-guided FNA or surgical removal can be considered.
== END 2023-11-18 08:36 | disposition home or self-care (01) ==
LOC: RAD 08:39
PROVIDERS: PCP Nurse Practitioner; Visit Provider Nurse Practitioner Family
DX: E03.9 Hypothyroidism, unspecified (principal); E04.1 Nontoxic single thyroid nodule
CPT/HCPCS: 76536

== ENCOUNTER 2023-12-10 09:03 | Outpatient (CLI) | payer OTHER, SELFPAY ==
--- NOTE | 2023-12-10 10:00 | US_ITS ---
WS: [id number] ULTRASOUND THYROID FNA CLINICAL INFORMATION: E04.1 - Nontoxic single thyroid nodule TECHNIQUE: Ultrasound-guided FNA FINDINGS: The procedure including risks, benefits, and complications were discussed with the patient who agreed to proceed. Timeout was performed. Using sterile technique patient was prepped and draped in usual sterile fashion. After 1% lidocaine, using ultrasound guidance, a 25-gauge needle was advanc ed into the LEFT thyroid nodule. 5 passes were made with active aspiration. Pathology was present for slide preparation. No immediate complications. Patient remained in the ultrasound suite 10 minutes postprocedure with intermittent ultrasound to ens ure no hematoma. No hematoma 10 minutes postprocedure. Pathology is pending. US/US biopsy/FNA thyroid [id number] IMPRESSION: Uncomplicated ultrasound-guided thyroid FNA LEFT thyroid nodule
== END 2023-12-10 09:04 | disposition home or self-care (01) ==
PROVIDERS: PCP Nurse Practitioner; Visit Provider Nurse Practitioner Family
DX: E04.1 Nontoxic single thyroid nodule (principal)
CPT/HCPCS: 10005; 88173

== ENCOUNTER → 2024-04-06 11:03 | Outpatient (BNVA) | payer OTHER, SELFPAY | PROVIDERS: PCP Nurse Practitioner Family; Visit Provider Internal Medicine | DX: E11.9 Type 2 diabetes mellitus without complications (principal); E78.2 Mixed hyperlipidemia | CPT/HCPCS: 80053; 80061; 82043; 83036 ==

== ENCOUNTER 2024-05-10 11:16 | Outpatient (CLI) | payer OTHER, SELFPAY ==
--- NOTE | 2024-05-10 11:20 | MM_ITS ---
WS: [id number] SCREENING DIGITAL TOMOSYNTHESIS MAMMOGRAM WITH CAD HISTORY: SCREENING COMPARISON: 05/05/2023, 10/28/2021, 07/01/2020 Bilateral CC and MLO with tomosynthesis views submitted. Synthetic mammography reviewed. Computer aid ed detection analyzed. Breast composition: The breasts are heterogeneously dense, which may obscure small masses. No suspici ous masses, microcalcifications or architectural distortion. Bilateral scattered asymmetries within e ach breast are stable since 07/01/2020. No new mass or distortion. MM/MM [facility] BI tomosynthesis [id number] IMPRESSION: BI-RADS: 2 - Benign FOLLOW UP: 1 Year Follow-up
== END 2024-05-10 11:17 | disposition home or self-care (01) ==
LOC: MOBLMAM 11:17
PROVIDERS: PCP Nurse Practitioner Family; Visit Provider Nurse Practitioner Family
DX: Z12.31 Encounter for screening mammogram for malignant neoplasm of breast (principal); R92.333 Mammographic heterogeneous density, bilateral breasts; N64.89 Other specified disorders of breast
CPT/HCPCS: 77063; 77067

== ENCOUNTER → 2024-07-28 10:56 | Outpatient (BNVA) | payer OTHER, SELFPAY | PROVIDERS: PCP Nurse Practitioner Family; Visit Provider Nurse Practitioner Family | DX: E03.9 Hypothyroidism, unspecified (principal); M10.9 Gout, unspecified; G89.29 Other chronic pain | CPT/HCPCS: 82607; 82652; 83550; 84439; 84443; 84481; 84550; 85651; 86140; 86431 ==

== ENCOUNTER → 2024-09-05 11:18 | Outpatient (BNVA) | payer OTHER, SELFPAY | PROVIDERS: PCP Nurse Practitioner Family; Visit Provider Internal Medicine | DX: E78.2 Mixed hyperlipidemia (principal); E11.9 Type 2 diabetes mellitus without complications | CPT/HCPCS: 80053; 80061; 82043; 83721 ==

== ENCOUNTER 2024-10-25 12:22 | Emergency (ER) | payer OTHER, SELFPAY ==
[2024-10-25 12:23] VITALS: BP 128/56; PULSE 127; RESP 16; TEMP 37.9; O2SAT 98; BMI 32.3
--- NOTE | 2024-10-25 12:45 | USCV_ITS ---
Shane Mary Age: 59 Gender: F : 1965 Exam Date: 10/25/2024 13:12 Ordering Phys: Zoey Matos MD Technologist: Exam Location: [facility] [place] Indication: rt leg swelling PROCEDURES: Venous duplex imaging was performed in only the right lower extremity. The following venous structures were evaluated: common femoral vein, profunda vein, proximal portion of the greater saphenous vein, superficial femoral vein, and the popliteal vein. In addition, the posterior tibial and peroneal trunk were evaluated. FINDINGS: Normal 2-D Doppler and augmentation and compressibility throughout the lower extremity venous structures. Additional imaging through the proximal calf veins also reveals no thrombus. Limited evaluation of the greater saphenous vein is patent with no thrombus. CONCLUSIONS No evidence of right lower extremity DVT. Chan Felder MD (Electronically Signed) Final Date: 25 October 2024 17:13 S
--- NOTE | 2024-10-25 12:45 | W.ED.EXTPRO ---
HPI - Extremity Problem General: Chief complaint: Extremity Problem,Nontraumatic Stated complaint: rt leg swollen Time Seen by Provider: 10/25/24 12:32 History of Present Illness: 59-year-old female with history of obesity, anxiety, GERD, hypothyroidism, diabetes and hyperlipidemia who presents to the emergency room with right posterior medial thigh pain and concern for swelling. She was worried she might have a DVT urine infection. Was sent for ultrasound. Related Data Home Medications ?Medication ?Instructions ?Recorded ?Confirmed vit no.95-ferrous 1 tab PO DAILY 12/11/20 10/25/24 fumarate 28 mg-folic acid 800 mcg tablet ( Multivitamins) cyclobenzaprine 10 mg tablet 10 mg PO TID PRN Pain 10/25/24 10/25/24 fenofibrate nanocrystallized 145 145 mg PO DAILY 10/25/24 10/25/24 mg tablet insulin glargine 100 unit/mL (3 100 unit SUBCUT QAM 10/25/24 10/25/24 mL) subcutaneous pen (Lantus Solostar U-100 Insulin) levothyroxine 200 mcg tablet 200 mcg PO QAM 10/25/24 10/25/24 levothyroxine 50 mcg tablet 50 mcg PO DAILY 10/25/24 10/25/24 metformin 1,000 mg tablet 1,000 mg PO BID 10/25/24 10/25/24 omega-3 fatty acids 1,000 mg 1,000 mg PO BEDTIME 10/25/24 10/25/24 capsule semaglutide 1 mg/dose (4 mg/3 mL) 1 mg SUBCUT Q7D 10/25/24 10/25/24 subcutaneous pen injector (Ozempic) Previous Rx's ?Medication ?Instructions ?Recorded pen needle, diabetic 32 gauge x #50 ea 02/29/24 (Aqinject Pen Needle) tramadol 50 mg tablet 50 mg PO BID PRN back pain 30 days 07/19/24 #60 tabs ezetimibe 10 mg tablet (Zetia) 10 mg PO DAILY 30 days #30 tabs 08/10/24 flash glucose sensor (FreeStyle #1 kit 10/16/24 Ashely 14 Day Sensor kit) lorazepam 0.5 mg tablet (Ativan) See Rx Instructions PO DAILY #4 10/24/24 tabs doxycycline hyclate 100 mg capsule 100 mg PO BID 7 days #14 caps 10/25/24 Allergies Allergy/AdvReac Type Severity Reaction Status Date / Time morphine AdvReac Unknown Verified 09/07/24 16:21 Review of Systems Narrative: Constitutional symptoms: Negative except as documented in HPI. Skin symptoms: Negative except as documented in HPI. Eye symptoms: Negative except as documented in HPI. ENMT symptoms: Negative except as documented in HPI. Respiratory symptoms: Negative except as documented in HPI. Cardiovascular symptoms: Negative except as documented in HPI. Gastrointestinal symptoms: Negative except as documented in HPI. Genitourinary symptoms: Negative except as documented in HPI. Musculoskeletal symptoms: Negative except as documented in HPI. Neurologic symptoms: Negative except as documented in HPI. Psychiatric symptoms: Negative except as documented in HPI. Endocrine symptoms: Negative except as documented in HPI. PFSH ED PFSH: Medical History (Updated 10/25/24 @ 13:22 by Zoey Matos MD) Anxiety Lung nodules Elevated diaphragm Statin intolerance Fatigue Palpitations Oral mucosal lesion Tongue burning sensation Tongue abnormality Oral candidiasis Nodule of left lobe of thyroid gland Lower respiratory infection Nocturnal sleep-related eating disorder GERD (gastroesophageal reflux disease) Urinary incontinence, mixed Erosion of transobdurator mid-urethral sling Otitis media Otitis externa Left knee pain Stress incontinence Hypothyroid Cystocele with rectocele Breast cancer screening by mammogram Chronic back pain DM type 2 (diabetes mellitus, type 2) Mixed hyperlipidemia Surgical History History of partial hysterectomy 1993 History of tubal ligation 1991 History of strabismus surgery left eye, 1977 Family History Mother , AT AGE 78 Diabetes Hyperlipidemia Congestive heart failure (CHF) Sister Diabetes Congestive heart failure (CHF) Brother Diabetes Son Hyperlipidemia Father , AT AGE 54 Automobile accident Social History Smoking and tobacco/nicotine status: never used tobacco/nicotine Physical Exam Narrative: EXAM NARRATIVE: General: Alert, no acute distress. Skin: Warm, dry. No obvious redness or swelling of the right posterior thigh. She does have pain there. Head: Normocephalic, atraumatic. Neck: Supple, trachea midline. Eye: Extraocular movements are intact. Ears, nose, mouth and throat: mucosa moist. Cardiovascular: Regular, Normal peripheral perfusion. Respiratory: Lungs are clear to auscultation, respirations are non-labored, breath sounds are equal, Symmetrical chest wall expansion. Gastrointestinal: Soft, Nontender, Non distended Musculoskeletal: Normal ROM, no deformity. Neurological: Alert and oriented, No focal neurological deficit observed. Psychiatric: Cooperative, appropriate mood & affect. Course Vital Signs: Vital signs: Vital Signs Temperature 100.2 F H 10/25/24 12:23 Pulse Rate 127 H 10/25/24 12:23 Respiratory Rate 16 10/25/24 12:23 Blood Pressure 128/56 10/25/24 12:23 Pulse Oximetry 98 10/25/24 12:23 Oxygen Delivery Me thod Room Air 10/25/24 12:23 MDM - Extremity (Nontraumatic) Medical Decision Making Medical decision making: Differential diagnosis including but not limited to and based on the above HPI, review of systems and physical exam: Thigh pain and possible swelling. Concern for DVT. Infection. Muscle strain. Orders placed to evaluate differential diagnosis based on the above differential, HPI and physical exam Ultrasound of the right lower extremity: No evidence of DVT. This was reviewed and interpreted by myself the emergency room physician. I also reviewed the radiology report. Lab Review: Laboratory results were reviewed and interpreted by myself the emergency room physician. Patient does have some leukocytosis. No anemia. No renal failure. CRP is bit elevated at 63. CTA chest PE protocol: No acute process. This was reviewed and interpreted by myself the emergency room physician. I also reviewed the radiology report. I reviewed the patient's medical record. Reexamination: Patient remained stable. No increased work of breathing. No altered mental status. No focal motor deficits. Discussed this may be a pulled muscle and also could be a cellulitis over going to place her on some antibiotics Assessment and plan: Thigh pain ? Home on antibiotics. P[facility] [place] here. She is on tramadol at home already. - Discharged home - Discussed plan with patient. Answered any questions. - Evaluation and treatment of this problem were appropriate in the emergency setting. Lab Data 10/25/24 12:55 10/25/24 12:55 Radiology Impressions Chest CTA 10/25/24 13:26 IMPRESSION: 1. No evidence of pulmonary embolus. 2. Shallow inspiration. Bibasilar atelectasis. 3. Fatty liver. 4. Small esophageal hiatal hernia. Laboratory Results WBC 17.20 10^3/uL (3.29-11.43) H 10/25/24 12:55 RBC 4.18 10^6/uL (3.85-5.65) 10/25/24 12:55 Hgb 10.60 g/dL (11.27-16.99) L 10/25/24 12:55 Hct 33.9 % (36-47) L 10/25/24 12:55 MCV 81.1 fl (85-98) L 10/25/24 12:55 MCH 25.4 pg (27-33) L 10/25/24 12:55 MCHC 31.3 g/dL (30-55) 10/25/24 12:55 RDW 12.9 % (12.1-15.1) 10/25/24 12:55 Plt Count 321 10^3/cmm (157-399) 10/25/24 12:55 MPV 10.5 fL (7.4-10.4) H 10/25/24 12:55 Neut % (Auto) 72.1 % 10/25/24 12:55 Lymph % (Auto) 19.8 % 10/25/24 12:55 Hyde % (Auto) 6.6 % 10/25/24 12:55 Eos % (Auto) 0.7 % 10/25/24 12:55 Baso % (Auto) 0.3 % 10/25/24 12:55 Neut # (Auto) 12.40 10^3/uL (1.8-7.7) H 10/25/24 12:55 Lymph # (Auto) 3.4 10^3/uL (0.8-4.8) 10/25/24 12:55 Hyde # (Auto) 1.1 10^3/uL (0.2-0.9) H 10/25/24 12:55 Eos # (Auto) 0.1 10^3/uL (0.0-0.8) 10/25/24 12:55 Baso # (Auto) 0.1 10^3/uL (0.0-0.1) 10/25/24 12:55 Nucleated RBC % (auto) 0 % 10/25/24 12:55 Nucleated RBCs # 0.0 /100WBC 10/25/24 12:55 ESR 63 mm/hr (0-15) H 10/25/24 12:55 PT 13.70 SECONDS (12.1-14.9) 10/25/24 12:55 INR 0.98 (0.8-1.2) 10/25/24 12:55 APTT 17.6 SECONDS (23.9-36.7) L 10/25/24 12:55 Sodium 132 mmol/L (136-145) L 10/25/24 12:55 Potassium 4.1 mmol/L (3.5-5.1) 10/25/24 12:55 Chloride 96 mmol/L (98-107) L 10/25/24 12:55 Carbon Dioxide 19 mmol/L (22-29) L 10/25/24 12:55 Anion Gap 21.1 (5-19) H 10/25/24 12:55 BUN 17 mg/dL (6-20) 10/25/24 12:55 Creatinine 0.4 mg/dL (0.5-0.9) L 10/25/24 12:55 GFR Calculation 164.5 mL/min (90-130) H 10/25/24 12:55 Glucose 204 mg/dL (65-115) H 10/25/24 12:55 Calculated Osmolality 281 mOsm/kg (285-295) L 10/25/24 12:55 Lactic Acid 0.8 mmol/L (0.5-2.2) 10/25/24 13:21 Calcium 8.6 mg/dL (8.5-10.5) 10/25/24 12:55 Total Bilirubin 0.5 mg/dL (0.15-1.2) 10/25/24 12:55 AST 11 U/L (0-32) 10/25/24 12:55 ALT 14 U/L (0-33) 10/25/24 12:55 Alkaline Phosphatase 117 U/L (35-105) H 10/25/24 12:55 C-Reactive Protein 211.1 mg/L (0.0-4.9) H 10/25/24 12:55 Total Protein 7.3 g/dL (6.6-8.7) 10/25/24 12:55 Albumin 3.4 g/dL (3.5-5.2) L 10/25/24 12:55 Globulin 3.9 g/dL (1.3-4.6) 10/25/24 12:55 All radiology interpretation(s) finalized by discharge Discharge Plan Discharge Patient Disposition: Home Clinical Impression: Acute thigh pain Condition: Stable Prescriptions: New doxycycline hyclate 100 mg capsule 100 mg PO BID 7 Days Qty: 14 0RF No Action ezetimibe [Zetia] 10 mg tablet 10 mg PO DAILY 30 Days Qty: 30 1RF (DME) pen needle, diabetic [Aqinject Pen Needle] 32 gauge x 5/32 needle See Rx Instructions .Route Qty: 50 0RF Rx Instructions: As directed tramadol 50 mg tablet 50 mg PO BID PRN (Reason: back pain) 30 Days Qty: 60 2RF (DME) FreeStyle Ashely 14 Day Sensor Kit See Rx Instructions .ROUTE .COMPLEX Qty: 1 5RF Dose Instruction: CHANGE every 14 DAYS DIRECTED Rx Instructions: CHANGE every 14 DAYS DIRECTED lorazepam [Ativan] 0.5 mg tablet See Rx Instructions PO DAILY Qty: 4 0RF Rx Instructions: take 2 tabs 30 minutes before procedure and can repeat 1-2 tabs if need PNV cmb#95-ferrous fumarate-FA [ Multivitamins] 28 mg iron- 800 mcg Tablet 1 tab PO DAILY omega-3 fatty acids 1,000 mg Capsule 1,000 mg PO BEDTIME cyclobenzaprine 10 mg tablet 10 mg PO TID PRN (Reason: Pain) levothyroxine 50 mcg tablet 50 mcg PO DAILY Rx Instructions: Along with 200mcg [id number] total metformin 1,000 mg tablet 1,000 mg PO BID levothyroxine 200 mcg tablet 200 mcg PO QAM Rx Instructions: Along with 50mcg [id number] total fenofibrate nanocrystallized 145 mg tablet 145 mg PO DAILY insulin glargine [Lantus Solostar U-100 Insulin] 100 unit/mL (3 mL) insulin pen 100 unit SUBCUT QAM Ozempic 1 mg/dose (4 mg/3 mL) pen injector 1 mg SUBCUT Q7D Rx Instructions: on Wednesday Discharge Orders: Discharge ED (Routine); Ordered 10/25/24 Ordered By: Zoey Matos Referrals: THOMAS Kramer, [facility]OVER [Primary Care Provider] - Discharge Diet: Usual diet Discharge Activity: Increase activity as tolerated Patient Instructions: Opioid Safety, Pain Management Activity Restrictions/Additional Instructions: Thank you for choosing [facility] for your healthcare needs today. You have been screened and evaluated and felt safe for discharge. Health conditions do change or evolve sometimes and as such it is important that you follow up with your Primary Doctor to be re checked, 3-5 days is a general good time frame for follow up. You are always welcome to return to the ED for re assessment if your symptoms are worsening or you have new concerns Print Language: Libyan Coding Level of Care Code ED Continuity Editor for Reinier Cortez
[2024-10-25 13:01] LABS: Basophils # 0.1 10^3/uL (0.0-0.1); Basophils % 0.3 %; Eosinophils # 0.1 10^3/uL (0.0-0.8); Eosinophils % 0.7 %; Hematocrit 33.9 % (36-47); Lymphocytes # 3.4 10^3/uL (0.8-4.8); Lymphocytes % 19.8 %; Mean Corpuscular HGB Conc 31.3 g/dL (30-55); Mean Corpuscular Hemoglobin 25.4 pg (27-33); Mean Corpuscular Volume 81.1 fl (85-98); Mean Platelet Volume 10.5 fL (7.4-10.4); Monocytes # 1.1 10^3/uL (0.2-0.9); Monocytes % 6.6 %; Neutrophils % 72.1 %; Nucleated Red Blood Cells % 0 %; Platelet Count 321 10^3/cmm (157-399); Red Blood Count 4.18 10^6/uL (3.85-5.65); Red Cell Distribution Width 12.9 % (12.1-15.1)
[2024-10-25 13:13] LABS: Erythrocyte Sedimentation Rate 63 mm/hr (0-15)
[2024-10-25 13:18] LABS: Alanine Aminotransferase 14 U/L (0-33); Albumin Level 3.4 g/dL (3.5-5.2); Alkaline Phosphatase 117 U/L (35-105); Anion Gap 21.1 (5-19); Aspartate Amino Transferase 11 U/L (0-32); Blood Urea Nitrogen 17 mg/dL (6-20); C Reactive Protein 211.1 mg/L (0.0-4.9); Calcium 8.6 mg/dL (8.5-10.5); Carbon Dioxide 19 mmol/L (22-29); Chloride 96 mmol/L (98-107); Creatinine Clr Calc Pharmacy 176.0497; Globulin 3.9 g/dL (1.3-4.6); Glomerular Filtration Rate 164.5 mL/min (90-130); Glucose 204 mg/dL (65-115); Osmolality Calculated 281 mOsm/kg (285-295); Potassium 4.1 mmol/L (3.5-5.1); Sodium 132 mmol/L (136-145); Total Bilirubin 0.5 mg/dL (0.15-1.2); Total Protein 7.3 g/dL (6.6-8.7)
--- NOTE | 2024-10-25 13:26 | CT_ITS ---
WS: [id number] CTA OF THE CHEST WITH PULMONARY EMBOLISM PROTOCOL TECHNIQUE: High-resolution contrast enhanced CTA of the chest with coronal and sagittal reformatted images with pulmonary embolism protocol. MIP images are also reviewed. CLINICAL INFORMATION: tachycardia, thigh pain COMPARISON: None. DLP: 398.[address] scans at [facility] use at least one of these dose optimization techniques: automated exposure control; mA and/or kV adjustment per patient size (includes targeted exams where dose is matched to clinical indication); or iterative reconstruction. FINDINGS: Proximal pulmonary arteries are normal. Normal segmental and subsegmental pulmonary arteries. Aortic calcification. Normal caliber thoracic aorta. No mediastinal or hilar lymphadenopathy. No axillary lymphadenopathy. Small esophageal hiatal hernia. Lungs are well aerated. Shallow inspiration. Bibasilar atelectasis. Fatty liver. CT/CT angio chest PE protcl [id number] IMPRESSION: 1. No evidence of pulmonary embolus. 2. Shallow inspiration. Bibasilar atelectasis. 3. Fatty liver. 4. Small esophageal hiatal hernia.
[2024-10-25 13:43] LABS: Partial Thromboplastin Time 17.6 SECONDS (23.9-36.7)
[2024-10-25] MEDS: sodium chloride 0.9% 1,000 ML 999 ML IV (14:05)
[2024-10-25] MEDS: cefepime 2,000 mg SDV 2000 MG IVP (14:06)
[2024-10-25 14:07] LABS: Lactic Sepsis W/Reflex 0.8 mmol/L (0.5-2.2)
[2024-10-25 14:30] LABS: INR 0.98 (0.8-1.2)
[2024-10-25] MEDS: iohexol 350 mg/mL 500 mL Btl (per mL) IV (14:31)
[2024-10-25] MEDS: HYDROcodone-acetaminophen 10-325 mg Tablet 1 TAB PO (15:10)
== END 2024-10-25 16:41 | disposition home or self-care (01) ==
PROVIDERS: Emergency Provider Emergency Medicine; PCP Nurse Practitioner Family
DX: M79.604 Pain in right leg (principal); Z79.4 Long term (current) use of insulin; E11.9 Type 2 diabetes mellitus without complications; E78.2 Mixed hyperlipidemia
CPT/HCPCS: 36415; 71275; 80053; 83605; 85025; 85610; 85651; 85730; 86140; 87040; 93971; 96361; 96374; 99285; J0692; J7030; J9999

== ENCOUNTER 2024-10-30 12:25 | Inpatient (IN) | payer OTHER, SELFPAY ==
[2024-10-30] VITALS (9 sets, daily range): BP systolic 128–156; BP diastolic 66–80; PULSE 102–111; RESP 24; TEMP 36.6; O2SAT 91–98; BMI 32.3
--- NOTE | 2024-10-30 14:18 | CTR_ITS ---
PROCEDURE INFORMATION: Exam: CT Right Lower Extremity With Contrast, Leg Exam date and time: 10/30/2024 4:46 PM Age: 59 years old Clinical indication: Pain; Lower leg; Right; Additional info: Leg pain and swelling, fever TECHNIQUE: Imaging protocol: CT of the right lower extremity with intravenous contrast was performed. Exam focused on the lower leg. Radiation optimization: All CT scans at this facility use at least one of these dose optimization techniques: automated exposure control; mA and/or kV adjustment per patient size (includes targeted exams where dose is matched to clinical indication); or iterative reconstruction. Contrast material: OMNIPAQUE 350; Contrast volume: 140 ml; Contrast route: INTRAVENOUS (IV); COMPARISON: No relevant prior studies available. RADIATION DOSE METRICS: Total DLP (mGy-cm): 1163.9 FINDINGS: Bones/joints: Lobulated, rim enhancing fluid collection in the medial compartment/proximal adductors of the proximal thigh, measuring 5.1 x 6.0 x 10.3 cm(AP x CC x TV). Most consistent with abscess given history of recent adjacent surgical intervention. No acute fracture or malalignment. No cortical erosion or periosteal reaction. Soft tissues: No distinct soft tissue gas. Moderate subcutaneous edema in the medial right thigh. Correlate for cellulitis. Reproductive: Status post hysterectomy. CT/CT lower leg RT w con [id number] IMPRESSION: Lobulated, rim enhancing fluid collection/abscess in the medial compartment/proximal adductors of the proximal thigh, measuring 5.1 x 6.0 x 10.3 cm (AP x CC x TV).
[2024-10-30 15:18] LABS: Basophils # 0.1 10^3/uL (0.0-0.1); Basophils % 0.5 %; Eosinophils # 0.1 10^3/uL (0.0-0.8); Eosinophils % 0.8 %; Hematocrit 37.2 % (36-47); Lymphocytes # 3.5 10^3/uL (0.8-4.8); Lymphocytes % 20.4 %; Mean Corpuscular HGB Conc 29.8 g/dL (30-55); Mean Corpuscular Hemoglobin 25.1 pg (27-33); Mean Platelet Volume 9.4 fL (7.4-10.4); Monocytes # 1.1 10^3/uL (0.2-0.9); Monocytes % 6.5 %; Neutrophils % 70.9 %; Nucleated Red Blood Cells % 0 %; Platelet Count 550 10^3/cmm (157-399); Red Blood Count 4.43 10^6/uL (3.85-5.65); Red Cell Distribution Width 12.9 % (12.1-15.1); White Blood Count 17.33 10^3/uL (3.29-11.43)
[2024-10-30 15:19] LABS: Erythrocyte Sedimentation Rate 24 mm/hr (0-15)
[2024-10-30 15:38] LABS: Alanine Aminotransferase 13 U/L (0-33); Albumin Level 3.6 g/dL (3.5-5.2); Alkaline Phosphatase 122 U/L (35-105); Anion Gap 17.1 (5-19); Aspartate Amino Transferase 11 U/L (0-32); Blood Urea Nitrogen 9 mg/dL (6-20); C Reactive Protein 202.6 mg/L (0.0-4.9); Calcium 9.1 mg/dL (8.5-10.5); Carbon Dioxide 26 mmol/L (22-29); Chloride 94 mmol/L (98-107); Creatinine Clr Calc Pharmacy 176.0497; Glomerular Filtration Rate 164.5 mL/min (90-130); Glucose 195 mg/dL (65-115); Osmolality Calculated 280 mOsm/kg (285-295); Potassium 4.1 mmol/L (3.5-5.1); Sodium 133 mmol/L (136-145); Total Bilirubin 0.5 mg/dL (0.15-1.2); Total Protein 7.6 g/dL (6.6-8.7)
[2024-10-30 15:44] LABS: Lactic Sepsis W/Reflex 0.9 mmol/L (0.5-2.2)
--- NOTE | 2024-10-30 16:37 | ED_ITS ---
Documented by User: GENO Miramontes 10/31/24 09:15 HPI - Extremity Problem 2 General: Chief complaint: Extremity Problem,Nontraumatic Stated complaint: R leg pain, chills Time Seen by Provider: 10/30/24 16:29 Source: patient Mode of arrival: wheelchair Limitations: no limitations History of Present Illness: Patient is a 59-year-old female presents to ED today with complaint of right leg pain. Patient states she underwent a procedure by RADIO ASSEMBLER at [facility] in [place] consisting of a rectocele repair and bladder sling repair. Patient states she was doing well following the surgery and had her 6-week follow-up visit approximately 12 days ago with her surgeon in [place]. She states she did not have any concerns at that time however shortly after that visit she began developing chills and pain to her right thigh. Patient states since then she has been seen here in the emergency department as well as followed up with her surgeon again. She reportedly had a CT scan performed that showed a hematoma. tells me patient has had fevers of up to 102, chills, body aches. She arrives here slightly tachycardic. She has a white count of 17.3. This is unchanged since her last ED visit a few days ago. She does have elevated inflammatory markers. Patient is a diabetic. Last A1c ( believes) was over 10. She is here today because pain is significantly worse. MD Complaint: extremity pain Onset (ago): day(s) Pain Consistency: constant Location: right and lower extremity Relieving factors: nothing Exacerbating factors: weight bearing and palpation Associated symptoms: Reports fever(s); Deny chest pain Related Data Home Medications ?Medication ?Instructions ?Recorded ?Confirmed cyclobenzaprine 10 mg tablet 10 mg PO TID PRN Pain 10/30/24 fenofibrate nanocrystallized 145 145 mg PO DAILY 10/2510/30/24 mg tablet insulin glargine 100 unit/mL (3 100 unit SUBCUT QAM 10/30/24 mL) subcutaneous pen (Lantus Solostar U-100 Insulin) levothyroxine 200 mcg tablet 200 mcg PO QAM 10/25/24 0 10/30/24 levothyroxine 50 mcg tablet 50 mcg PO DAILY 10/25/24 0 10/30/24 metformin 1,000 mg tablet 1,000 mg PO BID 10/25/24 semaglutide 1 mg/dose (4 mg/3 mL) 1 mg SUBCUT Q7D 10/0410/30/24 subcutaneous pen injector (Ozempic) Previous Rx's ?Medication ?Instructions ?Recorded tramadol 50 mg tablet 50 mg PO BID PRN back pain 3 0 days 07/19/24 #60 tabs ezetimibe 10 mg tablet (Zetia) 10 mg PO DAILY 30 days #30 tabs 08/10/24 doxycycline hyclate 100 mg capsule 100 mg PO BID 7 day s #14 caps 10/25/24 hydrocodone 5 mg-acetaminophen 325 1 tab PO Q4H PRN pa in 5 days #30 10/28/24 mg tablet tabs Allergies Allergy/AdvReac Type Severity Reaction Status Date / Time morphine AdvReac Unknown Verified 10/30/24 13:20 Review of Systems 2 Const: Reports: fever(s), chills and body aches Card: Denies: chest pain Resp: Denies: dyspnea GI: Denies: abdominal pain Musc: Reports: extremity pain and extremity swelling; Denies: neck pain or back pain Neuro: Reports: difficulty walking; Denies: numbness in extremities, weakness in extremities or sensory changes PFSH ED 2 PFSH: Medical History Postoperative pain Pain of thigh muscle Anxiety Lung nodules Elevated diaphragm Statin intolerance Fatigue Palpitations Oral mucosal lesion Tongue burning sensation Tongue abnormality Oral candidiasis Nodule of left lobe of thyroid gland Lower respiratory infection Nocturnal sleep-related eating disorder GERD (gastroesophageal reflux disease) Urinary incontinence, mixed Erosion of transobdurator mid-urethral sling Otitis media Otitis externa Left knee pain Stress incontinence Hypothyroid Cystocele with rectocele Breast cancer screening by mammogram Chronic back pain DM type 2 (diabetes mellitus, type 2) Mixed hyperlipidemia Surgical History History of partial hysterectomy 1993 History of tubal ligation 1991 History of strabismus surgery left eye, 1977 Family History Mother , AT AGE 78 Diabetes Hyperlipidemia Congestive heart failure (CHF) Sister Diabetes Congestive heart failure (CHF) Brother Diabetes Son Hyperlipidemia Father , AT AGE 54 Automobile accident Social History Smoking and tobacco/nicotine status: never used tobacco/nicotine Physical Exam 2 Const: COMMON NORMALS: no acute distress, average body habitus, patient oriented x3, no limitations, healthy appearing, alert and well nourished Resp: COMMON NORMALS: normal respiratory effort and clear to auscultation bilaterally AUSCULTATION: clear to auscultation bilaterally Cardio: COMMON NORMALS: regular rhythm RATE: tachycardic RHYTHM: regular rhythm Extremity: COMMON NORMALS: capillary refill normal GENERAL: Yes normal exam except as noted RIGHT LOWER EXTREMITY: Yes hip joint and Yes upper leg O THER: Patient has significant pain and induration as well as overlying warmth affecting her medial upper right thigh Neuro: COMMON NORMALS: patient oriented x3 SENSORIUM/ORIENTATION: Yes alert GAIT: Yes Unable to assess gait Course 2 ED course: CT personal review looks to have a large medial thigh abscess. She is tachycardic, white count of over 17, CRP over 200. She was started on IV sepsis bolus and started on empiric antibiotics. Care transferred to [facility] awaiting official CT results and consultation with appropriate specialists. ES Vital Signs: Vital signs: Vital Signs Temperature 99.1 F 11/01/24 05:53 Pulse Rate 98 11/01/24 05:53 Respiratory Rate 16 11/01/24 05:53 Blood Pressure 131/66 11/01/24 05:53 Pulse Oximetry 93 11/01/24 05:53 Oxygen Delivery Me thod Room Air 11/01/24 05:53 MDM - Extremity (Nontraumatic) Lab Data 11/01/24 01:35 11/01/24 01:[address] 10/30/24 16:38 IMPRESSION: 1. No appreciable pelvic fluid collection, mass, or acute inflammatory change. Status post hysterectomy. 2. Partially seen abscess in the proximal right thigh. Please refer to recently obtained dedicated CT of the right thigh for complete evaluation. Lower Extremity CT 10/31/24 10:04 IMPRESSION: 1. Multiloculated abscess centered in the RIGHT adductor muscles is reidentified. No obvious progression in size of the multiloculated abscess which measures 6.2 x 5.7 x 8.8 cm (TRV by CC by CC). No improvement of the abscess. 2. Progression of soft tissue infiltration of cellulitis/edema along the medial abscess and extending along the medial thigh. Laboratory Results WBC 16.76 10^3/uL (3.29-11.43) H 10/31/24 06:32 RBC 3.66 10^6/uL (3.85-5.65) L 10/31/24 06:32 Hgb 9.30 g/dL (11.27-16.99) L 10/31/24 06:32 Hct 29.9 % (36-47) L 10/31/24 06:32 MCV 81.7 fl (85-98) L 10/31/24 06:32 MCH 25.4 pg (27-33) L 10/31/24 06:32 MCHC 31.1 g/dL (30-55) 10/31/24 06:32 RDW 13.1 % (12.1-15.1) 10/31/24 06:32 Plt Count 470 10^3/cmm (157-399) H 10/31/24 06:32 MPV 9.2 fL (7.4-10.4) 10/31/24 06:32 Neut % (Auto) 66.1 % 10/31/24 06:32 Lymph % (Auto) 23.7 % 10/31/24 06:32 [place] % (Auto) 7.6 % 10/31/24 06:32 Eos % (Auto) 1.1 % 10/31/24 06:32 Baso % (Auto) 0.4 % 10/31/24 06:32 Neut # (Auto) 11.08 10^3/uL (1.8-7.7) H 10/31/24 06:32 Lymph # (Auto) 4.0 10^3/uL (0.8-4.8) 10/31/24 06:32 [place] # (Auto) 1.3 10^3/uL (0.2-0.9) H 10/31/24 06:32 Eos # (Auto) 0.2 10^3/uL (0.0-0.8) 10/31/24 06:32 Baso # (Auto) 0.1 10^3/uL (0.0-0.1) 10/31/24 06:32 Nucleated RBC % (auto) 0 % 10/31/24 06:32 Nucleated RBCs # 0.0 /100WBC 10/31/24 06:32 ESR 24 mm/hr (0-15) H 10/30/24 14:45 Sodium 134 mmol/L (136-145) L 10/31/24 06:32 Potassium 3.7 mmol/L (3.5-5.1) 10/31/24 06:32 Chloride 99 mmol/L (98-107) 10/31/24 06:32 Carbon Dioxide 22 mmol/L (22-29) 10/31/24 06:32 Anion Gap 16.7 (5-19) 10/31/24 06:32 BUN 6 mg/dL (6-20) 10/31/24 06:32 Creatinine 0.3 mg/dL (0.5-0.9) L 10/31/24 06:32 GFR Calculation 229.3 mL/min (90-130) H 10/31/24 06:32 Glucose 133 mg/dL (65-115) H 10/31/24 06:32 POC Glucose 161 mg/dL (70-110) H 10/31/24 11:27 Calculated Osmolality 278 mOsm/kg (285-295) L 10/31/24 06:32 Lactic Acid 0.9 mmol/L (0.5-2.2) 10/30/24 14:45 Calcium 8.4 mg/dL (8.5-10.5) L 10/31/24 06:32 Total Bilirubin 0.3 mg/dL (0.15-1.2) 10/31/24 06:32 AST 12 U/L (0-32) 10/31/24 06:32 ALT 11 U/L (0-33) 10/31/24 06:32 Alkaline Phosphatase 85 U/L (35-105) 10/31/24 06:32 C-Reactive Protein 202.6 mg/L (0.0-4.9) H 10/30/24 14:45 Total Protein 6.1 g/dL (6.6-8.7) L 10/31/24 06:32 Albumin 2.9 g/dL (3.5-5.2) L 10/31/24 06:32 Globulin 3.2 g/dL (1.3-4.6) 10/31/24 06:32 Discharge Plan Discharge Patient Disposition: Admitted As Inpatient Admit Provider: Anthony Sorto Clinical Impression: Abscess of right thigh DM type 2 (diabetes mellitus, type 2) Qualifiers: Diabetes mellitus terminal superintendent insulin use: without penitentiary use Diabetes mellitus complication status: without complication Qualified Code(s): E11.9 - Type 2 diabetes mellitus without complications Condition: Stable Sign Out Sign Out Data: Patient Sign Out occurred on 10/30/24 at 17:22. Patient's care was discussed, and care was transferred from GENO Miramontes to GENO Barnes. Coding Level of Care Code ED Furnace Keeper for Chg Fwd Documented by User: GENO Barnes 10/31/24 00:43 HPI - Extremity Problem 2 General: Chief complaint: Extremity Problem,Nontraumatic Stated complaint: R leg pain, chills Time Seen by Provider: 10/30/24 16:29 Related Data Home Medications ?Medication ?Instructions ?Recorded ?Confirmed cyclobenzaprine 10 mg tablet 10 mg PO TID PRN Pain 10/30/24 fenofibrate nanocrystallized 145 145 mg PO DAILY 10/2510/30/24 mg tablet insulin glargine 100 unit/mL (3 100 unit SUBCUT QAM 10/30/24 mL) subcutaneous pen (Lantus Solostar U-100 Insulin) levothyroxine 200 mcg tablet 200 mcg PO QAM 10/25/24 0 10/30/24 levothyroxine 50 mcg tablet 50 mcg PO DAILY 10/25/24 0 10/30/24 metformin 1,000 mg tablet 1,000 mg PO BID 10/25/24 semaglutide 1 mg/dose (4 mg/3 mL) 1 mg SUBCUT Q7D 10/0410/30/24 subcutaneous pen injector (Ozempic) Previous Rx's ?Medication ?Instructions ?Recorded tramadol 50 mg tablet 50 mg PO BID PRN back pain 3 0 days 07/19/24 #60 tabs ezetimibe 10 mg tablet (Zetia) 10 mg PO DAILY 30 days #30 tabs 08/10/24 doxycycline hyclate 100 mg capsule 100 mg PO BID 7 day s #14 caps 10/25/24 hydrocodone 5 mg-acetaminophen 325 1 tab PO Q4H PRN pa in 5 days #30 10/28/24 mg tablet tabs Allergies Allergy/AdvReac Type Severity Reaction Status Date / Time morphine AdvReac Unknown Verified 10/30/24 13:20 PFSH ED 2 PFSH: Medical History Postoperative pain Pain of thigh muscle Anxiety Lung nodules Elevated diaphragm Statin intolerance Fatigue Palpitations Oral mucosal lesion Tongue burning sensation Tongue abnormality Oral candidiasis Nodule of left lobe of thyroid gland Lower respiratory infection Nocturnal sleep-related eating disorder GERD (gastroesophageal reflux disease) Urinary incontinence, mixed Erosion of transobdurator mid-urethral sling Otitis media Otitis externa Left knee pain Stress incontinence Hypothyroid Cystocele with rectocele Breast cancer screening by mammogram Chronic back pain DM type 2 (diabetes mellitus, type 2) Mixed hyperlipidemia Surgical History History of partial hysterectomy 1993 History of tubal ligation 1991 History of strabismus surgery left eye, 1977 Family History Mother , AT AGE 78 Diabetes Hyperlipidemia Congestive heart failure (CHF) Sister Diabetes Congestive heart failure (CHF) Brother Diabetes Son Hyperlipidemia Father , AT AGE 54 Automobile accident Social History Smoking and tobacco/nicotine status: never used tobacco/nicotine Course 2 Vital Signs: Vital signs: Vital Signs Temperature 99.1 F 11/01/24 05:53 Pulse Rate 98 11/01/24 05:53 Respiratory Rate 16 11/01/24 05:53 Blood Pressure 131/66 11/01/24 05:53 Pulse Oximetry 93 11/01/24 05:53 Oxygen Delivery Me thod Room Air 11/01/24 05:53 MDM - Extremity (Nontraumatic) Medical Decision Making Care of patient transferred by GENO Miramontes. This patient had a rectocele repaired early September with SUPPLIER ENGINEER at [facility]. States to me that she has been having periodic chills and worsening pain to her proximal medial right thigh, was seen here in the emergency department a few days ago, had labs at that time showing elevated white count and CRP, but an ultrasound was negative. Today presenting stating the pain is worse, on my examination of the patient there was large area of palpable induration to the medial posterior proximal right thigh, area was warm to the touch and exquisitely tender. Labs again showing elevation in white count and CRP, CT showing a large rim-enhancing fluid collection concerning for an abscess. However a pelvic CT was unremarkable. Initially I had spoken with SUPPLIER ENGINEER at [facility], who had stated that this does not seem to be related to surgical procedure, if anything this would be related to abrasive stirrups during procedure but this is not likely and they recommend consult with general surgery. I then spoke with general surgery here, Dr. Gonzales, who recommends transfer to facility that can consult on urogyn surgery if there is fistula formation or other concerns. At this time patient is started on IV Vanco and Zosyn, and her pain has been controlled with Dilaudid here. Fluids have also been administered. I then spoke with the transfer center at [facility] again, this time speaking to hospitalist, Dr. Rodgers, who agrees to accept the patient as IR at [facility] had agreed to take this patient in for I&D of the abscess. However there is a bed hold at this time, and the patient is currently on a wait list but they had stated that bed would likely be available by wiring technician. I discussed this plan with the patient and family in the room, they had initially requested to leave POV but are agreeing to stay at this time and to be transferred whenever bed becomes available. On numerous rechecks she is noted to be sleeping comfortably, her vitals have remained within normal limits. Patient still awaiting transfer to [facility], bed assignment pending. Staffed patient with Dr. Dueñas for overnight shift. Lab Data 11/01/24 01:35 11/01/24 01:[address] 10/30/24 16:38 IMPRESSION: 1. No appreciable pelvic fluid collection, mass, or acute inflammatory change. Status post hysterectomy. 2. Partially seen abscess in the proximal right thigh. Please refer to recently obtained dedicated CT of the right thigh for complete evaluation. Lower Extremity CT 10/31/24 10:04 IMPRESSION: 1. Multiloculated abscess centered in the RIGHT adductor muscles is reidentified. No obvious progression in size of the multiloculated abscess which measures 6.2 x 5.7 x 8.8 cm (TRV by CC by CC). No improvement of the abscess. 2. Progression of soft tissue infiltration of cellulitis/edema along the medial abscess and extending along the medial thigh. Laboratory Results WBC 16.76 10^3/uL (3.29-11.43) H 10/31/24 06:32 RBC 3.66 10^6/uL (3.85-5.65) L 10/31/24 06:32 Hgb 9.30 g/dL (11.27-16.99) L 10/31/24 06:32 Hct 29.9 % (36-47) L 10/31/24 06:32 MCV 81.7 fl (85-98) L 10/31/24 06:32 MCH 25.4 pg (27-33) L 10/31/24 06:32 MCHC 31.1 g/dL (30-55) 10/31/24 06:32 RDW 13.1 % (12.1-15.1) 10/31/24 06:32 Plt Count 470 10^3/cmm (157-399) H 10/31/24 06:32 MPV 9.2 fL (7.4-10.4) 10/31/24 06:32 Neut % (Auto) 66.1 % 10/31/24 06:32 Lymph % (Auto) 23.7 % 10/31/24 06:32 [place] % (Auto) 7.6 % 10/31/24 06:32 Eos % (Auto) 1.1 % 10/31/24 06:32 Baso % (Auto) 0.4 % 10/31/24 06:32 Neut # (Auto) 11.08 10^3/uL (1.8-7.7) H 10/31/24 06:32 Lymph # (Auto) 4.0 10^3/uL (0.8-4.8) 10/31/24 06:32 [place] # (Auto) 1.3 10^3/uL (0.2-0.9) H 10/31/24 06:32 Eos # (Auto) 0.2 10^3/uL (0.0-0.8) 10/31/24 06:32 Baso # (Auto) 0.1 10^3/uL (0.0-0.1) 10/31/24 06:32 Nucleated RBC % (auto) 0 % 10/31/24 06:32 Nucleated RBCs # 0.0 /100WBC 10/31/24 06:32 ESR 24 mm/hr (0-15) H 10/30/24 14:45 Sodium 134 mmol/L (136-145) L 10/31/24 06:32 Potassium 3.7 mmol/L (3.5-5.1) 10/31/24 06:32 Chloride 99 mmol/L (98-107) 10/31/24 06:32 Carbon Dioxide 22 mmol/L (22-29) 10/31/24 06:32 Anion Gap 16.7 (5-19) 10/31/24 06:32 BUN 6 mg/dL (6-20) 10/31/24 06:32 Creatinine 0.3 mg/dL (0.5-0.9) L 10/31/24 06:32 GFR Calculation 229.3 mL/min (90-130) H 10/31/24 06:32 Glucose 133 mg/dL (65-115) H 10/31/24 06:32 POC Glucose 161 mg/dL (70-110) H 10/31/24 11:27 Calculated Osmolality 278 mOsm/kg (285-295) L 10/31/24 06:32 Lactic Acid 0.9 mmol/L (0.5-2.2) 10/30/24 14:45 Calcium 8.4 mg/dL (8.5-10.5) L 10/31/24 06:32 Total Bilirubin 0.3 mg/dL (0.15-1.2) 10/31/24 06:32 AST 12 U/L (0-32) 10/31/24 06:32 ALT 11 U/L (0-33) 10/31/24 06:32 Alkaline Phosphatase 85 U/L (35-105) 10/31/24 06:32 C-Reactive Protein 202.6 mg/L (0.0-4.9) H 10/30/24 14:45 Total Protein 6.1 g/dL (6.6-8.7) L 10/31/24 06:32 Albumin 2.9 g/dL (3.5-5.2) L 10/31/24 06:32 Globulin 3.2 g/dL (1.3-4.6) 10/31/24 06:32 All radiology interpretation(s) finalized by discharge Discharge Plan Discharge Patient Disposition: Admitted As Inpatient Admit Provider: Anthony Sorto Clinical Impression: Abscess of right thigh DM type 2 (diabetes mellitus, type 2) Qualifiers: Diabetes mellitus terminal superintendent insulin use: without penitentiary use Diabetes mellitus complication status: without complication Qualified Code(s): E11.9 - Type 2 diabetes mellitus without complications Condition: Stable Sign Out Sign Out Data: Patient Sign Out occurred on 10/30/24 at 17:22. Patient's care was discussed, and care was transferred from GENO Miramontes to GENO Barnes. Coding Level of Care Code ED Furnace Keeper for Chg Kellyd Documented by User: Harris Cortez DO 11/01/24 06:31 HPI - Extremity Problem 2 General: Chief complaint: Extremity Problem,Nontraumatic Stated complaint: R leg pain, chills Time Seen by Provider: 10/30/24 16:29 Related Data Home Medications ?Medication ?Instructions ?Recorded ?Confirmed cyclobenzaprine 10 mg tablet 10 mg PO TID PRN Pain 10/30/24 fenofibrate nanocrystallized 145 145 mg PO DAILY 10/2510/30/24 mg tablet insulin glargine 100 unit/mL (3 100 unit SUBCUT QAM 10/30/24 mL) subcutaneous pen (Lantus Solostar U-100 Insulin) levothyroxine 200 mcg tablet 200 mcg PO QAM 10/25/24 0 10/30/24 levothyroxine 50 mcg tablet 50 mcg PO DAILY 10/25/24 0 10/30/24 metformin 1,000 mg tablet 1,000 mg PO BID 10/25/24 semaglutide 1 mg/dose (4 mg/3 mL) 1 mg SUBCUT Q7D 10/0410/30/24 subcutaneous pen injector (Ozempic) Previous Rx's ?Medication ?Instructions ?Recorded tramadol 50 mg tablet 50 mg PO BID PRN back pain 3 0 days 07/19/24 #60 tabs ezetimibe 10 mg tablet (Zetia) 10 mg PO DAILY 30 days #30 tabs 08/10/24 doxycycline hyclate 100 mg capsule 100 mg PO BID 7 day s #14 caps 10/25/24 hydrocodone 5 mg-acetaminophen 325 1 tab PO Q4H PRN pa in 5 days #30 10/28/24 mg tablet tabs Allergies Allergy/AdvReac Type Severity Reaction Status Date / Time morphine AdvReac Unknown Verified 10/30/24 13:20 PFSH ED 2 PFSH: Medical History Postoperative pain Pain of thigh muscle Anxiety Lung nodules Elevated diaphragm Statin intolerance Fatigue Palpitations Oral mucosal lesion Tongue burning sensation Tongue abnormality Oral candidiasis Nodule of left lobe of thyroid gland Lower respiratory infection Nocturnal sleep-related eating disorder GERD (gastroesophageal reflux disease) Urinary incontinence, mixed Erosion of transobdurator mid-urethral sling Otitis media Otitis externa Left knee pain Stress incontinence Hypothyroid Cystocele with rectocele Breast cancer screening by mammogram Chronic back pain DM type 2 (diabetes mellitus, type 2) Mixed hyperlipidemia Surgical History History of partial hysterectomy 1993 History of tubal ligation 1991 History of strabismus surgery left eye, 1977 Family History Mother , AT AGE 78 Diabetes Hyperlipidemia Congestive heart failure (CHF) Sister Diabetes Congestive heart failure (CHF) Brother Diabetes Son Hyperlipidemia Father , AT AGE 54 Automobile accident Social History Smoking and tobacco/nicotine status: never used tobacco/nicotine Course 2 Vital Signs: Vital signs: Vital Signs Temperature 99.1 F 11/01/24 05:53 Pulse Rate 98 11/01/24 05:53 Respiratory Rate 16 11/01/24 05:53 Blood Pressure 131/66 11/01/24 05:53 Pulse Oximetry 93 11/01/24 05:53 Oxygen Delivery Me thod Room Air 11/01/24 05:53 MDM - Extremity (Nontraumatic) Medical Decision Making Care of patient transferred by GENO Miramontes. This patient had a rectocele repaired early September with SUPPLIER ENGINEER at [facility]. States to me that she has been having periodic chills and worsening pain to her proximal medial right thigh, was seen here in the emergency department a few days ago, had labs at that time showing elevated white count and CRP, but an ultrasound was negative. Today presenting stating the pain is worse, on my examination of the patient there was large area of palpable induration to the medial posterior proximal right thigh, area was warm to the touch and exquisitely tender. Labs again showing elevation in white count and CRP, CT showing a large rim-enhancing fluid collection concerning for an abscess. However a pelvic CT was unremarkable. Initially I had spoken with SUPPLIER ENGINEER at [facility], who had stated that this does not seem to be related to surgical procedure, if anything this would be related to abrasive stirrups during procedure but this is not likely and they recommend consult with general surgery. I then spoke with general surgery here, Dr. Gonzales, who recommends transfer to facility that can consult on urogyn surgery if there is fistula formation or other concerns. At this time patient is started on IV Vanco and Zosyn, and her pain has been controlled with Dilaudid here. Fluids have also been administered. I then spoke with the transfer center at [facility] again, this time speaking to hospitalist, Dr. Rodgers, who agrees to accept the patient as IR at [facility] had agreed to take this patient in for I&D of the abscess. However there is a bed hold at this time, and the patient is currently on a wait list but they had stated that bed would likely be available by wiring technician. I discussed this plan with the patient and family in the room, they had initially requested to leave PO but are agreeing to stay at this time and to be transferred whenever bed becomes available. On numerous rechecks she is noted to be sleeping comfortably, her vitals have remained within normal limits. Patient still awaiting transfer to [facility], bed assignment pending. Staffed patient with Dr. Dueñas for overnight shift. 10/31/2024 9 AM Care assumed at change of shift for repeat laboratory studies white count 16.7. Hemoglobin is decreased to 9.3. CMP reviewed. Patient is diabetic. Consulting radiology and general surgery for source control. Patient has been accepted at [facility] in [place] where she had original pelvic surgery however when we contacted them this morning they are uncertain of when a bed will be available the best they could offer is sometime later today due to volumes they are having at their facility. Hemoglobin this morning is down 1.8 g from yesterday. Patient did receive fluids. Patient is diabetic she normally is on insulin I will get Accu-Chek. Reviewed films with Dr. Martinez she is recommending that we consider general surgery she is not sure if the drain in that position would be as effective would be difficult to maintain additionally there are some septations there although it is difficult to tell based on the CT if that would create a problem with it. At this time we are waiting for general surgery consultation. Repeat CT shows the abscess itself has not increased in size but the cellulitis has extended. Her white count is essentially unchanged her hemoglobin did decrease this morning. At this point we are still uncertain when we will get a bed at [facility]. We are awaiting continuity 20 pelvic structures. Discussed with Dr. Gonzales and we agreed that source control is important especially her being diabetic is a concern of this continuing to spread. Will admit to the hospitalist have discussed with Dr. Sorto. Orders have been written hospitalist as attending surgeries for consulting Dr. Gonzales is anticipating taking surgery this afternoon. Reviewed plan with patient she is agreeable to this. Medical Records I reviewed the patient's medical records. Lab Data I reviewed the patient's lab results. 11/01/24 01:35 11/01/24 01:[address] 10/30/24 16:38 IMPRESSION: 1. No appreciable pelvic fluid collection, mass, or acute inflammatory change. Status post hysterectomy. 2. Partially seen abscess in the proximal right thigh. Please refer to recently obtained dedicated CT of the right thigh for complete evaluation. Lower Extremity CT 10/31/24 10:04 IMPRESSION: 1. Multiloculated abscess centered in the RIGHT adductor muscles is reidentified. No obvious progression in size of the multiloculated abscess which measures 6.2 x 5.7 x 8.8 cm (TRV by CC by CC). No improvement of the abscess. 2. Progression of soft tissue infiltration of cellulitis/edema along the medial abscess and extending along the medial thigh. Laboratory Results WBC 16.76 10^3/uL (3.29-11.43) H 10/31/24 06:32 RBC 3.66 10^6/uL (3.85-5.65) L 10/31/24 06:32 Hgb 9.30 g/dL (11.27-16.99) L 10/31/24 06:32 Hct 29.9 % (36-47) L 10/31/24 06:32 MCV 81.7 fl (85-98) L 10/31/24 06:32 MCH 25.4 pg (27-33) L 10/31/24 06:32 MCHC 31.1 g/dL (30-55) 10/31/24 06:32 RDW 13.1 % (12.1-15.1) 10/31/24 06:32 Plt Count 470 10^3/cmm (157-399) H 10/31/24 06:32 MPV 9.2 fL (7.4-10.4) 10/31/24 06:32 Neut % (Auto) 66.1 % 10/31/24 06:32 Lymph % (Auto) 23.7 % 10/31/24 06:32 [place] % (Auto) 7.6 % 10/31/24 06:32 Eos % (Auto) 1.1 % 10/31/24 06:32 Baso % (Auto) 0.4 % 10/31/24 06:32 Neut # (Auto) 11.08 10^3/uL (1.8-7.7) H 10/31/24 06:32 Lymph # (Auto) 4.0 10^3/uL (0.8-4.8) 10/31/24 06:32 [place] # (Auto) 1.3 10^3/uL (0.2-0.9) H 10/31/24 06:32 Eos # (Auto) 0.2 10^3/uL (0.0-0.8) 10/31/24 06:32 Baso # (Auto) 0.1 10^3/uL (0.0-0.1) 10/31/24 06:32 Nucleated RBC % (auto) 0 % 10/31/24 06:32 Nucleated RBCs # 0.0 /100WBC 10/31/24 06:32 ESR 24 mm/hr (0-15) H 10/30/24 14:45 Sodium 134 mmol/L (136-145) L 10/31/24 06:32 Potassium 3.7 mmol/L (3.5-5.1) 10/31/24 06:32 Chloride 99 mmol/L (98-107) 10/31/24 06:32 Carbon Dioxide 22 mmol/L (22-29) 10/31/24 06:32 Anion Gap 16.7 (5-19) 10/31/24 06:32 BUN 6 mg/dL (6-20) 10/31/24 06:32 Creatinine 0.3 mg/dL (0.5-0.9) L 10/31/24 06:32 GFR Calculation 229.3 mL/min (90-130) H 10/31/24 06:32 Glucose 133 mg/dL (65-115) H 10/31/24 06:32 POC Glucose 161 mg/dL (70-110) H 10/31/24 11:27 Calculated Osmolality 278 mOsm/kg (285-295) L 10/31/24 06:32 Lactic Acid 0.9 mmol/L (0.5-2.2) 10/30/24 14:45 Calcium 8.4 mg/dL (8.5-10.5) L 10/31/24 06:32 Total Bilirubin 0.3 mg/dL (0.15-1.2) 10/31/24 06:32 AST 12 U/L (0-32) 10/31/24 06:32 ALT 11 U/L (0-33) 10/31/24 06:32 Alkaline Phosphatase 85 U/L (35-105) 10/31/24 06:32 C-Reactive Protein 202.6 mg/L (0.0-4.9) H 10/30/24 14:45 Total Protein 6.1 g/dL (6.6-8.7) L 10/31/24 06:32 Albumin 2.9 g/dL (3.5-5.2) L 10/31/24 06:32 Globulin 3.2 g/dL (1.3-4.6) 10/31/24 06:32 Discharge Plan Discharge Patient Disposition: Admitted As Inpatient Admit Provider: Anthony Sorto Clinical Impression: Abscess of right thigh DM type 2 (diabetes mellitus, type 2) Qualifiers: Diabetes mellitus terminal superintendent insulin use: without terminal superintendent use Diabetes mellitus complication status: without complication Qualified Code(s): E11.9 - Type 2 diabetes mellitus without complications Condition: Stable Sign Out Sign Out Data: Patient Sign Out occurred on 10/30/24 at 17:22. Patient's care was discussed, and care was transferred from GENO Miramontes to GENO Barnes. Coding Level of Care Code ED Furnace Keeper for Reinier Cortez
--- NOTE | 2024-10-30 16:38 | CTR_ITS ---
PROCEDURE INFORMATION: Exam: CT Pelvis With Contrast Exam date and time: 10/30/2024 4:46 PM Age: 59 years old Clinical indication: Hip pain and pelvic pain; Right hip; Additional info: Leg pain/pelvic pain and swelling, fever TECHNIQUE: Imaging protocol: Computed tomography of the pelvis with contrast. Radiation optimization: All CT scans at this facility use at least one of these dose optimization techniques: automated exposure control; mA and/or kV adjustment per patient size (includes targeted exams where dose is matched to clinical indication); or iterative reconstruction. Contrast material: OMNIPAUQE 350; Contrast volume: 140 ml; Contrast route: INTRAVENOUS (IV); COMPARISON: CR XR IVP w KUB [id number] 01/30/2021 8:25 AM RADIATION DOSE METRICS: Total DLP (mGy-cm): 472.9 FINDINGS: Intestine: Imaged lower bowel unremarkable. Appendix: No evidence of appendicitis. Intraperitoneal space: See Reproductive finding. Lymph nodes: Unremarkable. No enlarged lymph nodes. Reproductive: Status post hysterectomy. No appreciable pelvic fluid collection. Bilateral adnexae are unremarkable. Urinary bladder: Normal. No mass. Bones/joints: Unremarkable. No acute fracture. No dislocation. Soft tissues: Partially seen enhancing fluid collection/abscess in the proximal adductors of the right thigh measuring 5.7 x 6.1 x 6.3 cm(AP x CC x TV). CT/CT pelvis w con* [id number] IMPRESSION: 1. No appreciable pelvic fluid collection, mass, or acute inflammatory change. Status post hysterectomy. 2. Partially seen abscess in the proximal right thigh. Please refer to recently obtained dedicated CT of the right thigh for complete evaluation.
[2024-10-30] MEDS: iohexol 350 mg/mL 500 mL Btl (per mL) IV (16:51)
[2024-10-30] MEDS: ondansetron 2 mg/ML SDV 2 mL 4 MG IVP (17:38)
[2024-10-30] MEDS: HYDROmorphone 0.5 MG/0.5 ML INJ IVP ×3 (17:39→22:36)
[2024-10-30] MEDS: piperacillin-tazobactam 3.375 GM in sodium chloride 0.9% (plus) 50 ML IV (17:44)
[2024-10-30] MEDS: vancomycin 1,250 MG/250 ML PIGGYBACK 166.67 MG IV (17:44)
--- NOTE | 2024-10-30 22:39 | PC.NURSE ---
September SLING REVISION BLADDER WITH RECTOCELE.
--- NOTE | 2024-10-30 23:09 | PC.NURSE ---
this nurse assumed pt care from Faina BLACK at 2300.
[2024-10-31] VITALS (32 sets, daily range): BP systolic 113–164; BP diastolic 50–95; PULSE 92–111; RESP 16–26; TEMP 36.1–37.6; O2SAT 90–98; BMI 32.9
[2024-10-31] MEDS: HYDROmorphone 0.5 MG/0.5 ML INJ IVP ×5 (01:43→23:57)
[2024-10-31] MEDS: piperacillin-tazobactam 3.375 GM in sodium chloride 0.9% (plus) 50 ML IV ×3 (06:32→19:54)
[2024-10-31 06:42] LABS: Basophils # 0.1 10^3/uL (0.0-0.1); Basophils % 0.4 %; Eosinophils # 0.2 10^3/uL (0.0-0.8); Eosinophils % 1.1 %; Hematocrit 29.9 % (36-47); Lymphocytes % 23.7 %; Mean Corpuscular HGB Conc 31.1 g/dL (30-55); Mean Corpuscular Hemoglobin 25.4 pg (27-33); Mean Corpuscular Volume 81.7 fl (85-98); Mean Platelet Volume 9.2 fL (7.4-10.4); Monocytes # 1.3 10^3/uL (0.2-0.9); Monocytes % 7.6 %; Neutrophils # 11.08 10^3/uL (1.8-7.7); Neutrophils % 66.1 %; Nucleated Red Blood Cells % 0 %; Platelet Count 470 10^3/cmm (157-399); Red Blood Count 3.66 10^6/uL (3.85-5.65); Red Cell Distribution Width 13.1 % (12.1-15.1); White Blood Count 16.76 10^3/uL (3.29-11.43)
[2024-10-31 06:58] LABS: Alanine Aminotransferase 11 U/L (0-33); Albumin Level 2.9 g/dL (3.5-5.2); Alkaline Phosphatase 85 U/L (35-105); Anion Gap 16.7 (5-19); Aspartate Amino Transferase 12 U/L (0-32); Blood Urea Nitrogen 6 mg/dL (6-20); Calcium 8.4 mg/dL (8.5-10.5); Carbon Dioxide 22 mmol/L (22-29); Chloride 99 mmol/L (98-107); Creatinine Clr Calc Pharmacy 234.7329; Globulin 3.2 g/dL (1.3-4.6); Glomerular Filtration Rate 229.3 mL/min (90-130); Glucose 133 mg/dL (65-115); Osmolality Calculated 278 mOsm/kg (285-295); Potassium 3.7 mmol/L (3.5-5.1); Sodium 134 mmol/L (136-145); Total Bilirubin 0.3 mg/dL (0.15-1.2); Total Protein 6.1 g/dL (6.6-8.7)
[2024-10-31] MEDS: vancomycin 1,250 MG/250 ML PIGGYBACK 166.67 MG IV ×2 (07:04→23:06)
--- NOTE | 2024-10-31 10:04 | CT_ITS ---
WS: [id number] CT RIGHT LOWER EXTREMITY, WITH CONTRAST. HISTORY: Abscess Technique: All CT scans at [facility] use at least one of these dose optimization techniques: automated exposure control; mA and/or kV adjustment per patient size (includes targeted exams where dose is matched to clinical indication); or iterative reconstruction. DLP: 701.77 mGy.cm COMPARISON: 10/30/2024 Contrast: Omnipaque 350; 100 cc IV. Patient has a known abscess centered in the proximal RIGHT adductor muscles. Multiloculated abscess extends over a length of at least 8.8 cm. Maximum transverse diameter 6.2 cm in AP diameter 5.7 cm. Peripheral enhancement without significant increase in size of the abscess. There is extension into the external obturator's muscle. Loss of continuity along the medial wall of the abscess. There is increasing subcutaneous edema and soft tissue stranding throughout the thigh. No extension of the abscess into the pelvis. The visualized bladder is negative. Few small inguinal lymph nodes are identified. CT/CT lower leg RT w con [id number] IMPRESSION: 1. Multiloculated abscess centered in the RIGHT adductor muscles is reidentifi ed. No obvious progression in size of the multiloculated abscess which measures 6.2 x 5.7 x 8.8 cm (TRV by CC by CC). No improvement of the abscess. 2. Progression of soft tissue infiltration of cellulitis/edema along the media l abscess and extending along the medial thigh.
--- NOTE | 2024-10-31 10:08 | PM.CONSULT ---
Providers/Reason For Consult Consulting Physician/Specialty*: Dr. Gonzales general surgery Reason for Consult*: Hip abscess Primary Care Provider: SHANTE Finney History of Present Illness History of Present Illness Mary Lynn is a 59 year old female who presented with large abscess medial right thigh. The abscess cavity is in the muscle. Patient recently had a rectocele as well as a urethral sling revision. Operative notes are not available for my review. She did present to her postop appointment last week and patient was told this was a hematoma. Patient started experiencing fevers and unable to walk last couple days. Medications/Allergies Home Medications ?Medication ?Instructions ?Recorded ?Confirmed ?Last Taken ?Type tramadol 50 mg tablet 50 mg PO BID PRN back pain 30 days 07/19/24 10/30/24 Unknown Rx #60 tabs ezetimibe 10 mg tablet (Zetia) 10 mg PO DAILY 30 days #30 tabs 08/10/24 10/30/24 10/25/24 Rx cyclobenzaprine 10 mg tablet 10 mg PO TID PRN Pain 10/25/24 10/30/24 Unknown History doxycycline hyclate 100 mg capsule 100 mg PO BID 7 days #14 caps 10/25/24 10/30/24 Unknown Rx fenofibrate nanocrystallized 145 145 mg PO DAILY 10/25/24 10/30/24 Unknown History mg tablet insulin glargine 100 unit/mL (3 100 unit SUBCUT QAM 10/25/24 10/30/24 10/25/24 History mL) subcutaneous pen (Lantus Solostar U-100 Insulin) levothyroxine 200 mcg tablet 200 mcg PO QAM 10/25/24 10/30/24 10/25/24 History levothyroxine 50 mcg tablet 50 mcg PO DAILY 10/25/24 10/30/24 10/25/24 History metformin 1,000 mg tablet 1,000 mg PO BID 10/25/24 10/30/24 10/25/24 History semaglutide 1 mg/dose (4 mg/3 mL) 1 mg SUBCUT Q7D 10/25/24 10/30/24 10/20/24 History subcutaneous pen injector (Ozempic) hydrocodone 5 mg-acetaminophen 325 1 tab PO Q4H PRN pain 5 days #30 10/28/24 10/30/24 Unknown Rx mg tablet tabs Allergies Allergy/AdvReac Type Severity Reaction Status Date / Time morphine AdvReac Unknown Verified 10/30/24 13:20 Current Medications Generic Name Dose Route Start Last Admin Trade Name Brinda PRN Reason Stop Dose Admin Vancomycin HCl 1,250 mg in 250 mls @ 166.667 mls/hr 10/31/24 07:00 10/31/24 08:58 Vancocin IV Infused Q8H IRINA Infusion PFSH Acute PFSH: Medical History Postoperative pain Pain of thigh muscle Anxiety Lung nodules Elevated diaphragm Statin intolerance Fatigue Palpitations Oral mucosal lesion Tongue burning sensation Tongue abnormality Oral candidiasis Nodule of left lobe of thyroid gland Lower respiratory infection Nocturnal sleep-related eating disorder GERD (gastroesophageal reflux disease) Urinary incontinence, mixed Erosion of transobdurator mid-urethral sling Otitis media Otitis externa Left knee pain Stress incontinence Hypothyroid Cystocele with rectocele Breast cancer screening by mammogram Chronic back pain DM type 2 (diabetes mellitus, type 2) Mixed hyperlipidemia Surgical History History of partial hysterectomy 1993 History of tubal ligation 1991 History of strabismus surgery left eye, 1977 Family History Mother , AT AGE 78 Diabetes Hyperlipidemia Congestive heart failure (CHF) Sister Diabetes Congestive heart failure (CHF) Brother Diabetes Son Hyperlipidemia Father , AT AGE 54 Automobile accident Social History Smoking and tobacco/nicotine status: never used tobacco/nicotine Vitals/I&O/Wt Last Vital Signs Temp 99.0 F 10/31/24 06:18 Pulse 96 10/31/24 09:24 Resp 16 10/31/24 07:00 BP 144/76 10/31/24 09:24 Pulse Ox 97 10/31/24 09:24 O2 Del Method Room Air 10/31/24 09:24 10/30/24 10/31/24 10/31/24 22:59 06:59 14:59 Intake Total 2078 300 / 300 Balance 2078 300 / 300 Weight last 48 hrs Weight 200 lb Physical Exam Narrative: Chest: Unlabored breathing room air. No lymphadenopathy. Heart: Regular rate and rhythm. Abdomen: Soft, nontender, nondistended. No masses or lymphadenopathy. Right thigh: Fluctuance right medial thigh. No crepitation. No skin changes. Data 10/31/24 06:32 10/31/24 06:32 Micro: Microbiology 10/30/24 17:35 Blood Culture - Preliminary Blood SPECIMEN COLLECTED 10/30/24 17:38 Blood Culture - Preliminary Blood SPECIMEN COLLECTED 10/30/24 14:45 Blood Culture - Preliminary Blood SPECIMEN COLLECTED 10/30/24 14:45 Blood Culture - Preliminary Blood SPECIMEN COLLECTED A&P Assessment and plan (1) Abscess of right thigh: (2) Postoperative pain: Plan 59-year-old female who presented with a right medial thigh abscess. The abscess is large, and it is really close to the perineum. Unable to review operative notes from outside hospital. Unclear if this abscess developed as a complication from her operation. Agree with transfer to higher level of care to be evaluated by her surgeon. PDMP PDMP Reviewed: Not Reviewed Coding Level of Care Code 60483 Diagnoses Abscess of right thigh L02.415 Postoperative pain G89.18
[2024-10-31] MEDS: iohexol 350 mg/mL 500 mL Btl (per mL) IV (11:14)
[2024-10-31 11:30] LABS: Glucose Point of Care 161 mg/dL (70-110)
[2024-10-31 12:29] LABS: Staphylococcus epidermidis Detected (NOT DETECT); mecA Detected (NOT DETECT)
--- NOTE | 2024-10-31 12:36 | PM.HP ---
Providers/Chief Complaint Primary Care Provider: SHANTE Finney Chief Complaint: R leg pain, chills History of Present Illness This is a patient with a history of surgery performed on September [address] [facility] who presents with a series of post?operative symptoms. After completing two-week and six-week checkups following the procedure, the patient began experiencing chills at night. A few days later, the patient noticed swelling in the leg and started limping after returning to work on September 22. Initially evaluated on September 24 by a nurse practitioner for possible blood clot or infection, further evaluation on September 26, including a CT scan, revealed a 3 x 5 cm hematoma which was discussed with her by her press tender smoke signal. Over the following weekend the patient experienced worsening symptoms including persistent chills, subjective fevers, and a heart rate noted to be around 109 BPM. Given the local findings and systemic signs, there is concern for an infected hematoma with abscess formation and a sepsis picture, particularly in the context of the patient?s diabetes. After consultation with surgery transfer is arranged to [facility], however, without an open bed transfer so far has not taken place. While awaiting bed opening she is going for incision and drainage for partial treatment here by general surgery until she can be further evaluated and treated by multidisciplinary team in [place]. Review of Systems Const: Reports: fever(s), chills and malaise ENMT: Denies: throat pain Card: Denies: chest pain, edema, pre-syncope or dyspnea on exertion Resp: Denies: dyspnea, productive cough, change in phlegm color or hemoptysis GI: Denies: abdominal pain, nausea, vomiting, diarrhea, constipation, hematochezia or melena : Denies: flank pain, urinary frequency or hematuria Musc: Reports: other (L inner/post thigh pain, swelling, redness); Denies: back pain, joint swelling or joint redness Skin/Breast: Reports: erythema; Denies: new lesions Neuro: Denies: headache(s) or confusion Medications/Allergies Home Medications ?Medication ?Instructions ?Recorded ?Confirmed ?Last Taken ?Type tramadol 50 mg tablet 50 mg PO BID PRN back pain 30 days 07/19/24 10/30/24 Unknown Rx #60 tabs ezetimibe 10 mg tablet (Zetia) 10 mg PO DAILY 30 days #30 tabs 08/10/24 10/30/24 10/25/24 Rx cyclobenzaprine 10 mg tablet 10 mg PO TID PRN Pain 10/25/24 10/30/24 Unknown History doxycycline hyclate 100 mg capsule 100 mg PO BID 7 days #14 caps 10/25/24 10/30/24 Unknown Rx fenofibrate nanocrystallized 145 145 mg PO DAILY 10/25/24 10/30/24 Unknown History mg tablet insulin glargine 100 unit/mL (3 100 unit SUBCUT QAM 10/25/24 10/30/24 10/25/24 History mL) subcutaneous pen (Lantus Solostar U-100 Insulin) levothyroxine 200 mcg tablet 200 mcg PO QAM 10/25/24 10/30/24 10/25/24 History levothyroxine 50 mcg tablet 50 mcg PO DAILY 10/25/24 10/30/24 10/25/24 History metformin 1,000 mg tablet 1,000 mg PO BID 10/25/24 10/30/24 10/25/24 History semaglutide 1 mg/dose (4 mg/3 mL) 1 mg SUBCUT Q7D 10/25/24 10/30/24 10/20/24 History subcutaneous pen injector (Ozempic) hydrocodone 5 mg-acetaminophen 325 1 tab PO Q4H PRN pain 5 days #30 10/28/24 10/30/24 Unknown Rx mg tablet tabs Allergies Allergy/AdvReac Type Severity Reaction Status Date / Time morphine AdvReac Unknown Verified 10/30/24 13:20 PFSH Acute PFSH: Medical History Postoperative pain Pain of thigh muscle Anxiety Lung nodules Elevated diaphragm Statin intolerance Fatigue Palpitations Oral mucosal lesion Tongue burning sensation Tongue abnormality Oral candidiasis Nodule of left lobe of thyroid gland Lower respiratory infection Nocturnal sleep-related eating disorder GERD (gastroesophageal reflux disease) Urinary incontinence, mixed Erosion of transobdurator mid-urethral sling Otitis media Otitis externa Left knee pain Stress incontinence Hypothyroid Cystocele with rectocele Breast cancer screening by mammogram Chronic back pain DM type 2 (diabetes mellitus, type 2) Mixed hyperlipidemia Surgical History History of partial hysterectomy 1993 History of tubal ligation 1991 History of strabismus surgery left eye, 1977 Family History Mother , AT AGE 78 Diabetes Hyperlipidemia Congestive heart failure (CHF) Sister Diabetes Congestive heart failure (CHF) Brother Diabetes Son Hyperlipidemia Father , AT AGE 54 Automobile accident Social History Smoking and tobacco/nicotine status: never used tobacco/nicotine Vitals/I&O/Wt Last Vital Signs Temp 99.0 F 10/31/24 06:18 Pulse 103 H 10/31/24 12:10 Resp 16 10/31/24 07:00 BP 163/73 10/31/24 12:10 Pulse Ox 97 10/31/24 12:10 O2 Del Method Room Air 10/31/24 12:10 10/30/24 10/31/24 10/31/24 22:59 06:59 14:59 Intake Total 2078 300 / 300 Balance 2078 300 / 300 Weight last 48 hrs Weight 90.718 kg Physical Exam Narrative: Accompanied by her . Const: COMMON NORMALS: patient oriented x3 and alert GENERAL APPEARANCE: cooperative ORIENTATION/CONSCIOUSNESS: Yes awake HENMT: COMMON NORMALS: oropharynx normal Neck/C-Spine: COMMON NORMALS: no JVD Resp: COMMON NORMALS: normal respiratory effort and clear to auscultation bilaterally AUSCULTATION: clear to auscultation bilaterally Cardio: COMMON NORMALS: no JVD, regular rhythm, S1 normal heart sound present, S2 normal heart sound present and No murmurs present (Cardio) RHYTHM: regular rhythm HEART SOUNDS: S1 normal heart sound present and S2 normal heart sound present GI: COMMON NORMALS: Normal to inspection, nondistended, normoactive bowel sounds present, Soft to palpation and non-tender PALPATION: Yes Soft to palpation Extremity: COMMON NORMALS: no joint enlargement and no pedal edema OTHER: R proximal posterior/medial thigh swelling, erythema, tenderness. Neuro: COMMON NORMALS: patient oriented x3 and moves all extremities SENSORIUM/ORIENTATION: Yes alert Data 10/31/24 06:32 10/31/24 06:32 Micro: Microbiology 10/30/24 14:45 Blood Culture - Preliminary Blood Staphylococcus epidermidis 10/30/24 17:35 Blood Culture - Preliminary Blood SPECIMEN COLLECTED 10/30/24 17:38 Blood Culture - Preliminary Blood SPECIMEN COLLECTED 10/30/24 14:45 Blood Culture - Preliminary Blood SPECIMEN COLLECTED A&P Assessment and plan (1) Abscess of right thigh: Abscess and cellulitis of right thigh. Sepsis. Reviewed vitals, CBC, ESR, CMP, lactic acid, CT right leg with contrast with finding of 5.1 x 6 x 10.3 cm loculated rim-enhancing fluid collection/abscess in the medial compartment/proximal adductors of the proximal thigh. Reviewed CT pelvis, no appreciable pelvic fluid collection, mass or acute inflammatory change, status post hysterectomy. Repeat lower extremity CT multiloculated abscess centered in the right abductor muscles without obvious progression in size 6.2 x 5.7 x 8.8 cm. No improvement. Progression of soft tissue infiltration cellulitis along the medial abscess and extending along the medial thigh. Discussed with ER provider. Reviewed ER and surgery notes. Accepted at [facility] where she had her original surgery for further assessment and management. However, with sepsis currently with leukocytosis 16.76, sinus tachycardia 103, fever 100.2 Fahrenheit, blood cultures been collected, lactic acid reviewed, normal, she is in need of source control, with plans for surgical incision and drainage later today while awaiting transfer to [facility], she understands that this is at least partial treatment to achieve at least partial source control. Receiving also treatment with antibiotics. She understands that she has elevated risk of proceeding to surgery, including elevated risk of complication, renal failure, and other complications, however, at this time blood glucose appears under good control and there is no obvious condition from the medical side that should preclude or delay cautiously proceeding with surgery. Will obtain baseline EKG She is at risk of hyperglycemia with infection, sepsis, continue to monitor blood glucose, continue insulin. Follow-up blood culture. Further cultures to be obtained intraoperatively. Continue Zosyn, vancomycin. Monitor for risk of kidney injury with antibiotic combination. Plan DM2: Continue POC glucose checks, insulin Lantus, and sliding scale insulin. At home she is also on metformin and Ozempic. HLD: Used to be on fenofibrate, but could not tolerate the medication PDMP PDMP Reviewed: Not Reviewed Attestations Medical Necessity Statement*: Admission of over 2 midnights anticipated for assessment management of right thigh abscess, cellulitis, sepsis, lady with underlying diabetes. and High MDM includes amount and/or complexity of data reviewed/ordered [ previous or external records, resulted lab(s)/test(s), ordered lab(s)/test(s) and other healthcare professional discussion] and described risk of complication, morbidity or mortality of management as documented Diagnoses Abscess of right thigh L02.415
--- NOTE | 2024-10-31 14:27 | ECG_ITS ---
[facility] 2024-10[facility]31 Pat Name: Mary Lynn Department: Room: 269 Gender: Female Carbon Cleaner: : 1965 Requested By: Anthony Sorto Order Number: [id number] Ashlee MD: Db Ayers M.D. Measurements Intervals Roxie Rate: 106 P: 60 SD: 151 QRS: 77 QRSD: 101 T: 43 QT: 350 QTc: 465 Interpretive Statements SINUS TACHYCARDIA LOW QRS VOLTAGE IN PRECORDIAL LEADS [QRS DEFLECTION < 1.0 mV IN CHEST LEADS] Compared to ECG 12/05/2020 12:40:39 Sinus rhythm no longer present Electronically Signed On 11-06-2024 10:41:22 CDT by Db Ayers M.D. [email or web address]
--- NOTE | 2024-10-31 15:11 | PM.CONSULT ---
Providers/Reason For Consult Consulting Physician/Specialty*: Dr. Gonzales general surgery Reason for Consult*: Left lower extremity chronic wound. Attending Physician: Anthony Sorto Primary Care Provider: SHANTE Finney History of Present Illness History of Present Illness Mary Lynn is a 59 year old female whom surgery was consulted for chronic wound left ankle. Patient has a large scab on it. Wound care has been doing Santyl. Medications/Allergies Home Medications ?Medication ?Instructions ?Recorded ?Confirmed ?Last Taken ?Type tramadol 50 mg tablet 50 mg PO BID PRN back pain 30 days 07/19/24 10/30/24 Unknown Rx #60 tabs ezetimibe 10 mg tablet (Zetia) 10 mg PO DAILY 30 days #30 tabs 08/10/24 10/30/24 10/25/24 Rx cyclobenzaprine 10 mg tablet 10 mg PO TID PRN Pain 10/25/24 10/30/24 Unknown History doxycycline hyclate 100 mg capsule 100 mg PO BID 7 days #14 caps 10/25/24 10/30/24 Unknown Rx fenofibrate nanocrystallized 145 145 mg PO DAILY 10/25/24 10/30/24 Unknown History mg tablet insulin glargine 100 unit/mL (3 100 unit SUBCUT QAM 10/25/24 10/30/24 10/25/24 History mL) subcutaneous pen (Lantus Solostar U-100 Insulin) levothyroxine 200 mcg tablet 200 mcg PO QAM 10/25/24 10/30/24 10/25/24 History levothyroxine 50 mcg tablet 50 mcg PO DAILY 10/25/24 10/30/24 10/25/24 History metformin 1,000 mg tablet 1,000 mg PO BID 10/25/24 10/30/24 10/25/24 History semaglutide 1 mg/dose (4 mg/3 mL) 1 mg SUBCUT Q7D 10/25/24 10/30/24 10/20/24 History subcutaneous pen injector (Ozempic) hydrocodone 5 mg-acetaminophen 325 1 tab PO Q4H PRN pain 5 days #30 10/28/24 10/30/24 Unknown Rx mg tablet tabs Allergies Allergy/AdvReac Type Severity Reaction Status Date / Time morphine AdvReac Unknown Verified 10/30/24 13:20 Current Medications Generic Name Dose Route Start Last Admin Trade Name Freq PRN Reason Stop Dose Admin Piperacillin Sod/Tazobactam 50 mls @ 12.5 mls/hr 10/31/24 12:30 10/31/24 12:07 Sod 3.375 gm/ Sodium Chloride IV 12.5 mls/hr Q8H IRINA Administration Protocol Vancomycin HCl 1,250 mg in 250 mls @ 166.667 mls/hr 10/31/24 07:00 10/31/24 08:58 Vancocin IV Infused Q8H IRINA Infusion PFSH Acute PFSH: Medical History Postoperative pain Pain of thigh muscle Anxiety Lung nodules Elevated diaphragm Statin intolerance Fatigue Palpitations Oral mucosal lesion Tongue burning sensation Tongue abnormality Oral candidiasis Nodule of left lobe of thyroid gland Lower respiratory infection Nocturnal sleep-related eating disorder GERD (gastroesophageal reflux disease) Urinary incontinence, mixed Erosion of transobdurator mid-urethral sling Otitis media Otitis externa Left knee pain Stress incontinence Hypothyroid Cystocele with rectocele Breast cancer screening by mammogram Chronic back pain DM type 2 (diabetes mellitus, type 2) Mixed hyperlipidemia Surgical History History of partial hysterectomy 1993 History of tubal ligation 1991 History of strabismus surgery left eye, 1977 Family History Mother , AT AGE 78 Diabetes Hyperlipidemia Congestive heart failure (CHF) Sister Diabetes Congestive heart failure (CHF) Brother Diabetes Son Hyperlipidemia Father , AT AGE 54 Automobile accident Social History Smoking and tobacco/nicotine status: never used tobacco/nicotine Vitals/I&O/Wt Last Vital Signs Temp 99.0 F 10/31/24 06:18 Pulse 106 H 10/31/24 14:56 Resp 16 10/31/24 07:00 BP 155/78 10/31/24 13:35 Pulse Ox 97 10/31/24 13:35 O2 Del Method Room Air 10/31/24 14:32 10/31/24 10/31/24 10/31/24 06:59 14:59 22:59 Intake Total 300 / 300 Balance 300 / 300 Weight last 48 hrs Weight 204 lb 1.6 oz Weight 200 lb Physical Exam Narrative: Chest: Unlabored breathing room air. No lymphadenopathy. Heart: Regular rate and rhythm. Abdomen: Soft, nontender, nondistended. No masses or lymphadenopathy. Chronic wound over left ankle. About 5 cm in diameter. Scab at wound base. Data 10/31/24 06:32 10/31/24 06:32 Micro: Microbiology 10/30/24 14:45 Blood Culture - Preliminary Blood Staphylococcus epidermidis 10/30/24 17:35 Blood Culture - Preliminary Blood SPECIMEN COLLECTED 10/30/24 17:38 Blood Culture - Preliminary Blood SPECIMEN COLLECTED 10/30/24 14:45 Blood Culture - Preliminary Blood SPECIMEN COLLECTED A&P Assessment and plan (1) Wound of left lower extremity: Plan 59-year-old female who presents with a left lower extremity chronic wound. Has a large scab at wound base. Will plan for debridement in the operating room on 11/01/2024 in AM. Discussed with hospitalist. PDMP PDMP Reviewed: Not Reviewed Coding Level of Care Code 23555 Diagnoses Wound of left lower extremity S81.802A
--- NOTE | 2024-10-31 16:06 | ANES.PREANE2 ---
Pre-Anesthetic Assessment Height/Weight: Height 1.68 m Weight 92.578 kg Temp Pulse Resp BP Pulse Ox O2 Del Method 99.0 F 106 H 16 155/78 97 Room Air 10/31/24 06:18 10/31/24 14:56 10/31/24 07:00 10/31/24 13:35 10/31/24 13:35 10/31/24 14:32 Operation Date: 10/31/24 19:00 Proposed Procedures p Incision And Drainage(Not Applicable) - Shayan Gonzales MD Familial anesthetic complications: NOne Was Beta Shelly taken within 24 hours: N/A Was Clonidine taken within 24 hours: N/A Last intake: > 8 hrs Social No alcohol and No tobacco Exam alert, oriented x 3, clear to auscultation bilaterally and regular rate & rhythm Airway Mallampati: Class III Dentition: full Metabolic Diabetes Mellitus, Morbid Obesity and Thyroid Disease Anesthetic Plan ASA status: 3 Anesthesia: General Risk of > 500 ml blood loss (7ml/kg in children): No Medications/Allergies Home Medications ?Medication ?Instructions ?Recorded ?Confirmed ?Last Taken ?Type tramadol 50 mg tablet 50 mg PO BID PRN back pain 30 days 07/19/24 10/30/24 Unknown Rx #60 tabs ezetimibe 10 mg tablet (Zetia) 10 mg PO DAILY 30 days #30 tabs 08/10/24 10/30/24 10/25/24 Rx cyclobenzaprine 10 mg tablet 10 mg PO TID PRN Pain 10/25/24 10/30/24 Unknown History doxycycline hyclate 100 mg capsule 100 mg PO BID 7 days #14 caps 10/25/24 10/30/24 Unknown Rx fenofibrate nanocrystallized 145 145 mg PO DAILY 10/25/24 10/30/24 Unknown History mg tablet insulin glargine 100 unit/mL (3 100 unit SUBCUT QAM 10/25/24 10/30/24 10/25/24 History mL) subcutaneous pen (Lantus Solostar U-100 Insulin) levothyroxine 200 mcg tablet 200 mcg PO QAM 10/25/24 10/30/24 10/25/24 History levothyroxine 50 mcg tablet 50 mcg PO DAILY 10/25/24 10/30/24 10/25/24 History metformin 1,000 mg tablet 1,000 mg PO BID 10/25/24 10/30/24 10/25/24 History semaglutide 1 mg/dose (4 mg/3 mL) 1 mg SUBCUT Q7D 10/25/24 10/30/24 10/20/24 History subcutaneous pen injector (Ozempic) hydrocodone 5 mg-acetaminophen 325 1 tab PO Q4H PRN pain 5 days #30 10/28/24 10/30/24 Unknown Rx mg tablet tabs Allergies Allergy/AdvReac Type Severity Reaction Status Date / Time morphine AdvReac Unknown Verified 10/30/24 13:20 Current Medications Generic Name Dose Route Start Last Admin Trade Name Freq PRN Reason Stop Dose Admin Piperacillin Sod/Tazobactam 50 mls @ 12.5 mls/hr 10/31/24 12:30 10/31/24 12:07 Sod 3.375 gm/ Sodium Chloride IV 12.5 mls/hr Q8H IRINA Administration Protocol Vancomycin HCl 1,250 mg in 250 mls @ 166.667 mls/hr 10/31/24 07:00 10/31/24 08:58 Vancocin IV Infused Q8H IRINA Infusion PFSH Anesthesia Medical History Postoperative pain Pain of thigh muscle Anxiety Lung nodules Elevated diaphragm Statin intolerance Fatigue Palpitations Oral mucosal lesion Tongue burning sensation Tongue abnormality Oral candidiasis Nodule of left lobe of thyroid gland Lower respiratory infection Nocturnal sleep-related eating disorder GERD (gastroesophageal reflux disease) Urinary incontinence, mixed Erosion of transobdurator mid-urethral sling Otitis media Otitis externa Left knee pain Stress incontinence Hypothyroid Cystocele with rectocele Breast cancer screening by mammogram Chronic back pain DM type 2 (diabetes mellitus, type 2) Mixed hyperlipidemia Surgical History History of partial hysterectomy 1993 History of tubal ligation 1991 History of strabismus surgery left eye, 1977 Family History Mother , AT AGE 78 Diabetes Hyperlipidemia Congestive heart failure (CHF) Sister Diabetes Congestive heart failure (CHF) Brother Diabetes Son Hyperlipidemia Father , AT AGE 54 Automobile accident Social History Smoking and tobacco/nicotine status: never used tobacco/nicotine Data Anesthesia 10/31/24 06:32 10/31/24 06:32 Short CBC 10/30/24 10/31/24 Range/Units 14:45 06:32 WBC 17.33 H 16.76 H (3.29-11.43) 10^3/uL Hgb 11.10 L 9.30 L (11.27-16.99) g/dL Hct 37.2 29.9 L (36-47) % MCV 84.0 L 81.7 L (85-98) fl Plt Count 550 H 470 H (157-399) 10^3/cmm Neut % (Auto) 70.9 66.1 % Neut # (Auto) 12.30 H 11.08 H (1.8-7.7) 10^3/uL BMP 10/30/24 10/31/24 14:45 06:32 Sodium 133 L 134 L Potassium 4.1 3.7 Chloride 94 L 99 Carbon Dioxide 26 22 BUN 9 6 Creatinine 0.4 L 0.3 L Glucose 195 H 133 H Calcium 9.1 8.4 L Liver Function 10/30/24 10/31/24 Range/Units 14:45 06:32 Total Bilirubin 0.5 0.3 (0.15-1.2) mg/dL AST 11 12 (0-32) U/L ALT 13 11 (0-33) U/L Alkaline Phosphatase 122 H 85 (35-105) U/L Albumin 3.6 2.9 L (3.5-5.2) g/dL Coags 10/30/24 14:45 ESR 24 H C-Reactive Protein 202.6 H Microbiology 10/30/24 14:45 Blood Culture - Preliminary Blood NEGATIVE TO DATE 10/30/24 14:45 Blood Culture - Preliminary Blood Staphylococcus epidermidis 10/30/24 17:35 Blood Culture - Preliminary Blood SPECIMEN COLLECTED 10/30/24 17:38 Blood Culture - Preliminary Blood SPECIMEN COLLECTED Cardiac Studies: No Data to Display
[2024-10-31 16:15] LABS: Glucose Point of Care 149 mg/dL (70-110)
[2024-10-31] MEDS: vancomycin 1,250 MG/250 ML PIGGYBACK 160 MG IV (16:16)
--- NOTE | 2024-10-31 17:20 | PHA.VACGOAL ---
Vancomycin Goal - Goal Vancomycin Goal:: 10-15 mg/L Vancomycin Indication:: SSTI - Therapy Current therapy:: Pip/Tazo Day of therpy:: Day [1]of [] . Actual body weight (kg): 92.578 kg - Data Labs: WBC 16.76 10^3/uL (3.29-11.43) H 10/31/24 06:32 RBC 3.66 10^6/uL (3.85-5.65) L 10/31/24 06:32 Hgb 9.30 g/dL (11.27-16.99) L 10/31/24 06:32 Hct 29.9 % (36-47) L 10/31/24 06:32 MCV 81.7 fl (85-98) L 10/31/24 06:32 MCH 25.4 pg (27-33) L 10/31/24 06:32 MCHC 31.1 g/dL (30-55) 10/31/24 06:32 RDW 13.1 % (12.1-15.1) 10/31/24 06:32 Sodium 134 mmol/L (136-145) L 10/31/24 06:32 Potassium 3.7 mmol/L (3.5-5.1) 10/31/24 06:32 Chloride 99 mmol/L (98-107) 10/31/24 06:32 Carbon Dioxide 22 mmol/L (22-29) 10/31/24 06:32 Anion Gap 16.7 (5-19) 10/31/24 06:32 BUN 6 mg/dL (6-20) 10/31/24 06:32 Creatinine 0.3 mg/dL (0.5-0.9) L 10/31/24 06:32 GFR Calculation 229.3 mL/min (90-130) H 10/31/24 06:32 Treatment plan:: new consult Regimen:: New start vancomycin for Abscess and cellulitis of right thigh. No load dose ordered. Started on maintenance dose of 1250 mg q8h.
--- NOTE | 2024-10-31 17:39 | P.OP_ITS ---
Operative Report Date of procedure: October 31, 2024 Pre-op diagnosis: Muscle abscess right thigh Post-op diagnosis: same Post-op findings: 6 x 2 x 4 cm abscess cavity right medial thigh down to muscle Procedure done: Incision and drainage of right lower extremity abscess down to muscle Implants: N/A Specimens removed/disposition: Sent cultures to microbiology Pathology: none sent Surgeon: Shayan Gonzales MD Cable Ferry Operator: N/A Anesthesia: MAC Estimated blood loss (mL): 20 Complications: N/A Brief History: 59-year-old female who recently had a rectal prolapse repair as well as a urethral sling revision who came in with a right medial thigh abscess in the right adductor muscles. Her surgeon at outside hospital thought this was unrelated to her operation. Transfer was attempted but unsuccessful. The decision was made to proceed with an incision and drainage of right medial thigh abscess. Procedure: Consent was obtained in the preop area. Patient was brought into the operating room. She was laid supine in frog-leg position. The right thigh and perineum was prepped and draped in the usual sterile fashion. Ultrasound was used to locate the abscess cavity. 3 incisions (1cm) were carried out in order to locate the abscess cavity. The abscess cavity was accessed through the middle incision which was extended to about 3 cm. 100 cc of purulent fluid were evacuated. Cultures were sent. The wound was irrigated profusely with saline and diluted peroxide. Adequate hemostasis was achieved using electrocautery. The cavity measured approximately 6 x 2 x 4 cm. Packing was performed using Kerlix moistened in Betadine. The other two 1 cm incisions were closed using 2- 0 nylon in an interrupted fashion. The patient woke up from anesthesia without any complications.
[2024-10-31] MEDS: fentaNYL 50 mcg/mL INJ 2mL IVP (18:15)
--- NOTE | 2024-10-31 18:30 | ANE.PACU2 ---
Inpatient post-anesthesia follow up: Airway intact: Yes Vital signs: Temperature 99.1 F Pulse Rate 98 Respiratory Rate 16 Blood Pressure 131/66 Pulse Oximetry 93 Oxygen Delivery Me thod Room Air Oxygen Flow Rate Fraction of Inspir ed Oxygen Hydration adequate: Yes Nausea and vomiting: No Pain level: 1 Mental status: Baseline
[2024-10-31 20:07] LABS: Glucose Point of Care 182 mg/dL (70-110)
[2024-10-31] MEDS: insulin lispro 100 unit/1 mL SUBCUT (20:20)
[2024-10-31] MEDS: HYDROcodone-acetaminophen 5-325 mg Tablet 1 TAB PO (22:25)
[2024-10-31] MEDS: sodium chloride 0.9% 1,000 ML 125 ML IV (22:39)
[2024-11-01 00:35] VITALS: BP 117/78; PULSE 99; RESP 17; TEMP 36.8; O2SAT 96
[2024-11-01 02:42] LABS: Basophils # 0.1 10^3/uL (0.0-0.1); Basophils % 0.5 %; Eosinophils # 0.1 10^3/uL (0.0-0.8); Eosinophils % 0.7 %; Hematocrit 29.2 % (36-47); Lymphocytes % 22.9 %; Mean Corpuscular HGB Conc 30.8 g/dL (30-55); Mean Corpuscular Hemoglobin 25.4 pg (27-33); Mean Corpuscular Volume 82.5 fl (85-98); Mean Platelet Volume 9.6 fL (7.4-10.4); Monocytes # 1.3 10^3/uL (0.2-0.9); Monocytes % 7.1 %; Neutrophils # 11.89 10^3/uL (1.8-7.7); Neutrophils % 67.7 %; Nucleated Red Blood Cells % 0 %; Platelet Count 475 10^3/cmm (157-399); Red Blood Count 3.54 10^6/uL (3.85-5.65); Red Cell Distribution Width 13.1 % (12.1-15.1); White Blood Count 17.54 10^3/uL (3.29-11.43)
[2024-11-01 05:06] LABS: Alanine Aminotransferase 11 U/L (0-33); Albumin Level 2.7 g/dL (3.5-5.2); Alkaline Phosphatase 86 U/L (35-105); Anion Gap 19.3 (5-19); Aspartate Amino Transferase 13 U/L (0-32); Blood Urea Nitrogen 7 mg/dL (6-20); Calcium 7.8 mg/dL (8.5-10.5); Carbon Dioxide 19 mmol/L (22-29); Chloride 98 mmol/L (98-107); Creatinine Clr Calc Pharmacy 177.8722; Globulin 3.2 g/dL (1.3-4.6); Glomerular Filtration Rate 164.5 mL/min (90-130); Glucose 230 mg/dL (65-115); Osmolality Calculated 281 mOsm/kg (285-295); Potassium 3.3 mmol/L (3.5-5.1); Sodium 133 mmol/L (136-145); Total Bilirubin 0.3 mg/dL (0.15-1.2); Total Protein 5.9 g/dL (6.6-8.7)
[2024-11-01 05:53] VITALS: BP 131/66; PULSE 98; RESP 16; TEMP 37.3; O2SAT 93
[2024-11-01] MEDS: piperacillin-tazobactam 3.375 GM in sodium chloride 0.9% (plus) 50 ML IV (06:06)
[2024-11-01] MEDS: vancomycin 1,250 MG/250 ML PIGGYBACK 160 MG IV (06:07)
[2024-11-01] MEDS: levothyroxine 200 mcg Tablet PO (06:08)
[2024-11-01 06:24] LABS: Glucose Point of Care 239 mg/dL (70-110)
--- NOTE | 2024-11-01 07:12 | P.PN_ITS ---
Subjective 2 Subjective: Cellulitis improved Packing changed Afebrile Vital signs stable Patient feeling much better Vitals/I&O/Wt Last Vital Signs Temp 99.1 F 11/01/24 05:53 Pulse 98 11/01/24 05:53 Resp 16 11/01/24 05:53 BP 131/66 11/01/24 05:53 Pulse Ox 93 11/01/24 05:53 O2 Del Method Room Air 11/01/24 05:53 10/31/24 11/01/24 11/01/24 22:59 06:59 14:59 Intake Total 350 / 650 300 / 950 Output Total 500 / 530 Balance 320 / 620 -200 / 420 Weight last 48 hrs Weight 206 lb Weight 204 lb 1.6 oz Weight 200 lb Physical Exam 2 Narrative: Chest: Unlabored breathing room air. No lymphadenopathy. Heart: Regular rate and rhythm. Abdomen: Soft, nontender, nondistended. No masses or lymphadenopathy. Right thigh: Cellulitis improved. Packing changed. Data 11/01/24 01:35 11/01/24 01:35 Micro: Microbiology 10/30/24 17:35 Blood Culture - Preliminary Blood NEGATIVE TO DATE 10/30/24 17:38 Blood Culture - Preliminary Blood NEGATIVE TO DATE 10/30/24 14:45 Blood Culture - Preliminary Blood NEGATIVE TO DATE 10/30/24 14:45 Blood Culture - Preliminary Blood Staphylococcus epidermidis A&P Assessment and plan (1) Abscess of right thigh: Plan 59-year-old female who presented with a large abscess in the right thigh at the level of the abductor muscles. Postoperative day 1 incision and drainage of abscess. Packing changed today. Clinically doing much better. Discussed with hospitalist. I will discharge the patient on p.o. antibiotics. Ordered antibiotics as per hospitalist recommendations. Follow-up in clinic in 1 week. Instructed to change packing daily. Patient has been instructed on reasons to come back to the ER. PDMP PDMP Reviewed: Last Reviewed 11/01/24 10:26 EDT by Shayan Gonzales MD Attestations 2 Medical Necessity Statement*: IV antibiotics, IV fluids, IV pain, wound care packing change Coding Level of Care Code 69183 Diagnoses Abscess of right thigh L02.415
[2024-11-01 07:50] VITALS: BP 105/54; PULSE 97; RESP 18; TEMP 36.9; O2SAT 93
[2024-11-01] MEDS: insulin glargine 100 units/1 mL 80 UNIT SUBCUT (08:28)
[2024-11-01] MEDS: insulin lispro 100 unit/1 mL SUBCUT (08:28)
[2024-11-01] MEDS: levothyroxine 50 mcg Tablet PO (08:29)
[2024-11-01] MEDS: potassium chloride ER 20 mEq Tablet 40 MEQ PO (08:29)
[2024-11-01] MEDS: HYDROcodone-acetaminophen 5-325 mg Tablet 1 TAB PO (08:37)
--- NOTE | 2024-11-01 09:32 | P.DS_ITS ---
Discharge Providers Date of Admission: 10/31/24 12:59 Date of Discharge: November 01, 2024 Attending Provider at Admission: Anthony Sorto Attending Provider at Discharge: Anthony Sorto Primary Care Provider: SHANTE Finney Diagnoses at Discharge Discharge Diagnosis (1) Wound of left lower extremity: Status: Acute Reason for Visit Reason for Visit: R leg pain, chills Hospital Course Hospital Course 59-year-old female who presented with a large right thigh abscess at the level of the adductor muscles. Admitted for IV antibiotics and incision and drainage of abscess. Postoperative day 1 of I&D patient was doing well was discharged on p.o. antibiotics. Instructed to change packing daily. She will follow-up in 1 week with me in clinic. Physical Exam Narrative: Chest: Unlabored breathing room air. No lymphadenopathy. Heart: Regular rate and rhythm. Abdomen: Soft, nontender, nondistended. No masses or lymphadenopathy. Right thigh: Cellulitis improved. Packing changed. Nylon sutures in place on the 2 stab incisions on the right thigh. Discharge Data Studies Completed and Pending Completed Studies During Hospitalization Category Date Time Status CT lower leg RT w con [id number] Stat Cat Scan 10/30/24 14:[address] lower leg RT w con [id number] Stat Cat Scan 10/31/24 10:[address] pelvis w con* [id number] Stat Cat Scan 10/30/24 16:38 Completed Pending at discharge Category Date Time Status Abscess Culture and Gram Stain Routine Lab 10/31/24 17:38 Received Blood Culture Stat Lab 10/30/24 14:45 Results Blood Culture Stat Lab 10/30/24 17:35 Results Complete Blood Count w/Auto AM LABS Lab 11/02/24 04:00 Ordered Complete Blood Count w/Auto AM LABS Lab 11/03/24 04:00 Ordered Comprehensive Metabolic Panel AM LABS Lab 11/02/24 04:00 Ordered Comprehensive Metabolic Panel AM LABS Lab 11/03/24 04:00 Ordered Wound Culture and Gram Stain Routine Lab 10/31/24 17:38 Received Radiology Impressions Pelvis CT 10/30/24 16:38 IMPRESSION: 1. No appreciable pelvic fluid collection, mass, or acute inflammatory change. Status post hysterectomy. 2. Partially seen abscess in the proximal right thigh. Please refer to recently obtained dedicated CT of the right thigh for complete evaluation. Lower Extremity CT 10/31/24 10:04 IMPRESSION: 1. Multiloculated abscess centered in the RIGHT adductor muscles is reidentified. No obvious progression in size of the multiloculated abscess which measures 6.2 x 5.7 x 8.8 cm (TRV by CC by CC). No improvement of the abscess. 2. Progression of soft tissue infiltration of cellulitis/edema along the medial abscess and extending along the medial thigh. Laboratory Results WBC 17.54 10^3/uL (3.29-11.43) H 11/01/24 01:35 RBC 3.54 10^6/uL (3.85-5.65) L 11/01/24 01:35 Hgb 9.00 g/dL (11.27-16.99) L 11/01/24 01:35 Hct 29.2 % (36-47) L 11/01/24 01:35 MCV 82.5 fl (85-98) L 11/01/24 01:35 MCH 25.4 pg (27-33) L 11/01/24 01:35 MCHC 30.8 g/dL (30-55) 11/01/24 01:35 RDW 13.1 % (12.1-15.1) 11/01/24 01:35 Plt Count 475 10^3/cmm (157-399) H 11/01/24 01:35 MPV 9.6 fL (7.4-10.4) 11/01/24 01:35 Neut % (Auto) 67.7 % 11/01/24 01:35 Lymph % (Auto) 22.9 % 11/01/24 01:35 [place] % (Auto) 7.1 % 11/01/24 01:35 Eos % (Auto) 0.7 % 11/01/24 01:35 Baso % (Auto) 0.5 % 11/01/24 01:35 Neut # (Auto) 11.89 10^3/uL (1.8-7.7) H 11/01/24 01:35 Lymph # (Auto) 4.0 10^3/uL (0.8-4.8) 11/01/24 01:35 [place] # (Auto) 1.3 10^3/uL (0.2-0.9) H 11/01/24 01:35 Eos # (Auto) 0.1 10^3/uL (0.0-0.8) 11/01/24 01:35 Baso # (Auto) 0.1 10^3/uL (0.0-0.1) 11/01/24 01:35 Nucleated RBC % (auto) 0 % 11/01/24 01:35 Nucleated RBCs # 0.0 /100WBC 11/01/24 01:35 ESR 24 mm/hr (0-15) H 10/30/24 14:45 Sodium 133 mmol/L (136-145) L 11/01/24 01:35 Potassium 3.3 mmol/L (3.5-5.1) L 11/01/24 01:35 Chloride 98 mmol/L (98-107) 11/01/24 01:35 Carbon Dioxide 19 mmol/L (22-29) L 11/01/24 01:35 Anion Gap 19.3 (5-19) H 11/01/24 01:35 BUN 7 mg/dL (6-20) 11/01/24 01:35 Creatinine 0.4 mg/dL (0.5-0.9) L 11/01/24 01:35 GFR Calculation 164.5 mL/min (90-130) H 11/01/24 01:35 Glucose 230 mg/dL (65-115) H 11/01/24 01:35 POC Glucose 239 mg/dL (70-110) H 11/01/24 06:16 Calculated Osmolality 281 mOsm/kg (285-295) L 11/01/24 01:35 Lactic Acid 0.9 mmol/L (0.5-2.2) 10/30/24 14:45 Calcium 7.8 mg/dL (8.5-10.5) L 11/01/24 01:35 Total Bilirubin 0.3 mg/dL (0.15-1.2) 11/01/24 01:35 AST 13 U/L (0-32) 11/01/24 01:35 ALT 11 U/L (0-33) 11/01/24 01:35 Alkaline Phosphatase 86 U/L (35-105) 11/01/24 01:35 C-Reactive Protein 202.6 mg/L (0.0-4.9) H 10/30/24 14:45 Total Protein 5.9 g/dL (6.6-8.7) L 11/01/24 01:35 Albumin 2.7 g/dL (3.5-5.2) L 11/01/24 01:35 Globulin 3.2 g/dL (1.3-4.6) 11/01/24 01:35 Vitals Last Vital Signs Temp 98.4 F 11/01/24 07:50 Pulse 97 11/01/24 07:50 Resp 18 11/01/24 07:50 BP 105/54 11/01/24 07:50 Pulse Ox 93 11/01/24 07:50 O2 Del Method Room Air 11/01/24 07:50 Discharge Plan Discharge Patient Disposition: Home Condition: Stable Prescriptions: New oxycodone 5 mg tablet 5 mg PO Q6H PRN (Reason: pain) 5 Days Qty: 10 0RF linezolid 600 mg tablet 600 mg PO Q12H 14 Days Qty: 28 0RF amoxicillin 500 mg capsule 500 mg PO TID 14 Days Qty: 42 0RF Continued ezetimibe [Zetia] 10 mg tablet 10 mg PO DAILY 30 Days Qty: 30 1RF hydrocodone-acetaminophen 5-325 mg tablet 1 tab PO Q4H PRN (Reason: pain) 5 Days Qty: 30 0RF Rx Instructions: Stop Tramadol while taking Hydrocone - Do not take both pain meds. cyclobenzaprine 10 mg tablet 10 mg PO TID PRN (Reason: Pain) levothyroxine 50 mcg tablet 50 mcg PO DAILY Rx Instructions: Along with 200mcg [id number] total metformin 1,000 mg tablet 1,000 mg PO BID levothyroxine 200 mcg tablet 200 mcg PO QAM Rx Instructions: Along with 50mcg [id number] total fenofibrate nanocrystallized 145 mg tablet 145 mg PO DAILY insulin glargine [Lantus Solostar U-100 Insulin] 100 unit/mL (3 mL) insulin pen 100 unit SUBCUT QAM Ozempic 1 mg/dose (4 mg/3 mL) pen injector 1 mg SUBCUT Q7D Rx Instructions: on Wednesday Discontinued tramadol 50 mg tablet 50 mg PO BID PRN (Reason: back pain) 30 Days Qty: 60 2RF doxycycline hyclate 100 mg capsule 100 mg PO BID 7 Days Qty: 14 0RF Discharge Orders: Discharge Order (Routine); Ordered 11/01/24 Ordered By: Shayan Gonzales Referrals: Montez Moctezuma, [Other] - 4-7 days Referral Note: Please follow up with surgeon within 2 weeks of hospital discharge. Shayan Gonzales MD [Physician, General Surgery] - 11/09/24 10:35 am THOMAS Kramer FNP [Primary Care Provider] - 11/06/24 9:00 am Discharge Diet: Diabetic Discharge Activity: Resume usual activity Patient Instructions: Amoxicillin/Clavulanate Potassium (By mouth), Oxycodone, Rapid Release (By mouth), Linezolid (By mouth), Acute Wound Care (DC), Abscess (GEN), Opioid Safety, Post Anesthesia Care Activity Restrictions/Additional Instructions: Please follow-up for reassessment after incision and drainage of abscess in the right thigh, and to follow-up on final cultures both from the abscess as well as blood cultures. As discussed please be aware that 1 out of 4 bottles from the initial culture on 10/30 is showing Staph epidermidis, a common skin contaminant, however, in case of heavier growth sometimes can be a cause of infection. Repeat blood cultures had been obtained and so far are not showing any growth. Please follow-up with your primary doctor regarding final results or you may be contacted about them sooner. Complete antibiotic course and seek reassessment even if you are improving, and follow-up with your integrated circuit fabricator for further reassessment after hematoma and infection. Follow-up with your primary doctor to continue to optimize diabetes control as diabetes does increase your risk of infections. Seek medical attention in case of any worsening or any new concerning symptoms. General Surgery Instructions: 1. Pack wound daily with kerlix moistened in water. Cover with dry gauze. 2. Finish antibiotics as prescribed. 3. Follow up with Dr. Gonzales in 1 week. 4. No bathtubs until wound is healed. Ok for showers. 5. Do not drive if you take oxycodone. Discharge Attestations Time Spent in Discharge Care*: greater than 30 min Quality Metrics Clinical Quality Measures [ No reported AMI, CVA or VTE this stay] Coding Level of Care Code Acute Code for Chg Fwd Diagnoses Wound of left lower extremity S81.802A
[2024-11-01 11:43] VITALS: BP 105/54; PULSE 97; RESP 18; TEMP 36.9; O2SAT 93
--- NOTE | 2024-11-01 17:09 | PM.PN ---
Subjective Subjective: She is feeling much better this morning. 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 Vitals/I&O/Wt Last Vital Signs Temp 98.4 F 11/01/24 11:43 Pulse 97 11/01/24 11:43 Resp 18 11/01/24 11:43 BP 105/54 11/01/24 11:43 Pulse Ox 93 11/01/24 11:43 O2 Del Method Room Air 11/01/24 07:50 11/01/24 11/01/24 11/01/24 06:59 14:59 22:59 Intake Total 300 / 950 1540 / 1540 Output Total 500 / 530 Balance -200 / 420 1540 / 1540 Weight last 48 hrs Weight 93.44 kg Weight 92.578 kg Physical Exam Narrative: Accompanied by her on second visit. Const: COMMON NORMALS: patient oriented x3 and alert GENERAL APPEARANCE: cooperative ORIENTATION/CONSCIOUSNESS: Yes awake HENMT: COMMON NORMALS: oropharynx normal Neck/C-Spine: COMMON NORMALS: no JVD Resp: COMMON NORMALS: normal respiratory effort and clear to auscultation bilaterally AUSCULTATION: clear to auscultation bilaterally Cardio: COMMON NORMALS: no JVD, regular rhythm, S1 normal heart sound present, S2 normal heart sound present and No murmurs present (Cardio) RHYTHM: regular rhythm HEART SOUNDS: S1 normal heart sound present and S2 normal heart sound present GI: COMMON NORMALS: Normal to inspection, nondistended, normoactive bowel sounds present, Soft to palpation and non-tender PALPATION: Yes Soft to palpation Extremity: COMMON NORMALS: no joint enlargement OTHER: R proximal posterior/medial thigh swelling with improvement. Postoperative dressing. No visible erythema. No descending erythema, swelling of the remainder of the thigh, knee or lower leg. Neuro: COMMON NORMALS: patient oriented x3 and moves all extremities SENSORIUM/ORIENTATION: Yes alert Data 11/01/24 01:35 11/01/24 01:35 Micro: Microbiology 10/31/24 17:38 Gram Stain - Final Thigh - Right Wound Culture - Preliminary 10/30/24 17:35 Blood Culture - Preliminary Blood NEGATIVE TO DATE 10/30/24 17:38 Blood Culture - Preliminary Blood NEGATIVE TO DATE 10/30/24 14:45 Blood Culture - Preliminary Blood NEGATIVE TO DATE 10/30/24 14:45 Blood Culture - Preliminary Blood Staphylococcus epidermidis A&P Assessment and plan (1) Abscess of right thigh: Status post I&D of abscess of right thigh, with evacuation of purulent material, packing, this morning she is feeling much better. Sepsis resolving, still with leukocytosis on review of CBC, but tachycardia subsiding and no longer febrile. Additional cultures have been collected intraoperatively. Discussed with her culture results with Staph epidermidis in 1/4 bottles from 10/30, suspected contaminant, but repeat blood cultures were obtained later that evening, so far negative. Please follow-up final cultures. Intraoperative cultures with many gram-negative rods on Gram stain. No gram-positive's. Please follow-up final results. Further reassessed by surgery, wound repacked, with good appearance of the wound, improved cellulitis, she is being discharged home with antibiotics and follow-up. Discussed to continue empiric MRSA coverage for now, continue gram-negative coverage. Monitor for risk of C. difficile. Consider de-escalation depending on final culture growth. Surgery will be seeing her in follow-up, she is also asked to follow-up with her die casting supervisor in [place] to reassess after thigh hematoma and infection. Please reassess condition, follow-up final cultures and continue to optimize diabetes control. She knows to follow-up for reassessment even with improvement of symptoms, or in case of worsening or new concerning symptoms. Discussed with surgery, nursing, director case management. Discussed with her and her . Plan DM2: Continue POC glucose checks, insulin Lantus, and sliding scale insulin. At home she is also on metformin and Ozempic. HLD: Used to be on fenofibrate, but could not tolerate the medication PDMP PDMP Reviewed: Not Reviewed Attestations Medical Necessity Statement*: Returning home after treatment of right thigh abscess. Diagnoses Abscess of right thigh L02.415
== END 2024-11-01 11:46 | disposition home or self-care (01) | DRG 872 ==
LOC: ER 10-31 12:05 → MEDSURG 10-31 13:00
PROVIDERS: Emergency Medicine; Admitting Provider Internal Medicine; Emergency Provider Family Medicine; PCP Nurse Practitioner Family; Visit Provider Student in an Organized Health Care Education/Training Program
PROC: 0K9Q3ZZ Drainage of Right Upper Leg Muscle, Percutaneous Approach (ICD-10-PCS; principal; 2024-10-31 18:50)
DX: A41.9 Sepsis, unspecified organism (principal); M60.051 Infective myositis, right thigh; L03.115 Cellulitis of right lower limb; E78.2 Mixed hyperlipidemia; G89.29 Other chronic pain; E03.9 Hypothyroidism, unspecified; K21.9 Gastro-esophageal reflux disease without esophagitis; F41.9 Anxiety disorder, unspecified; S91.002A Unspecified open wound, left ankle, initial encounter; X58.XXXA Exposure to other specified factors, initial encounter; Z79.890 Hormone replacement therapy; Z79.4 Long term (current) use of insulin; Z79.899 Other long term (current) drug therapy; Z88.5 Allergy status to narcotic agent
CPT/HCPCS: 36415; 36416; 72193; 73701; 80053; 82962; 83605; 85025; 85651; 86140; 87040; 87070; 87075; 87077; 87150; 87186; 87205; 93005; 96372; 99285; J1171; J1815; J2250; J2405; J2543; J2704; J3010; J3370; J7030; J9999

== ENCOUNTER → 2024-11-06 12:32 | Outpatient (BNVA) | payer OTHER, SELFPAY | PROVIDERS: PCP Nurse Practitioner Family; Visit Provider Nurse Practitioner Family | DX: S81.801A Unspecified open wound, right lower leg, initial encounter (principal) | CPT/HCPCS: 87070 ==

== ENCOUNTER → 2024-12-07 11:07 | Outpatient (BNVA) | payer OTHER, SELFPAY | PROVIDERS: PCP Nurse Practitioner Family; Visit Provider Internal Medicine | DX: E11.9 Type 2 diabetes mellitus without complications (principal); E78.2 Mixed hyperlipidemia | CPT/HCPCS: 80053; 80061; 82043; 83036 ==

== ENCOUNTER → 2025-01-11 10:44 | Outpatient (BNVA) | payer OTHER, SELFPAY | PROVIDERS: PCP Nurse Practitioner Family; Visit Provider Nurse Practitioner Family | DX: I10 Essential (primary) hypertension (principal); R60.9 Edema, unspecified; R53.83 Other fatigue; E11.9 Type 2 diabetes mellitus without complications | CPT/HCPCS: 80053; 81003; 82570; 82728; 83550; 83880; 84156; 84443; 85025 ==

== ENCOUNTER 2025-02-05 16:33 | Outpatient (CLI) | payer OTHER, SELFPAY ==
--- NOTE | 2025-02-05 16:45 | US_ITS ---
WS: [id number] THYROID ULTRASOUND HISTORY: E04.1 - Nontoxic single thyroid nodule COMPARISON: 12/10/2023, 11/18/2023 Right lobe: 1.5 cm x 1.6 cm x 4.8 cm (w x ap x l). Volume: 5.4 cm3. Heterogeneous thyroid with lobulated margins and a few scattered cystic areas. No mass. No nodule. Left lobe: 1.6 cm x 1.6 cm x 4.1 cm (w x ap x l). Volume: 5.3 cm3. Normal sized thyroid lobe. Heterogeneous thyroid with multiple cystic areas scattered throughout the gland. There are a few hyperechoic foci on a background of heterogeneity and cystic change. Previously described nodule in the lower pole is not as well identified on today's exam. Isthmus: 0.5 cm. US/US thyroid 87659 IMPRESSION: 1. TI-RADS 2; heterogeneous thyroid. Cystic nodules within each lobe. Previous ly described nodule in the inferior pole of the LEFT thyroid is not identified today. There is now diffuse cystic change throughout the LEFT thyroid. 2. Yearly ultrasound evaluation can be performed for continued surveillance.
== END 2025-02-05 16:34 | disposition home or self-care (01) ==
LOC: RAD 16:35
PROVIDERS: PCP Nurse Practitioner Family; Visit Provider Nurse Practitioner Family
DX: E04.1 Nontoxic single thyroid nodule (principal); E03.9 Hypothyroidism, unspecified
CPT/HCPCS: 76536

== ENCOUNTER → 2025-02-13 13:14 | Outpatient (BNVA) | payer OTHER, SELFPAY | PROVIDERS: PCP Nurse Practitioner Family; Visit Provider Emergency Medicine | DX: B34.9 Viral infection, unspecified (principal); R50.9 Fever, unspecified | CPT/HCPCS: 87400; 87426 ==

== ENCOUNTER → 2025-03-07 11:17 | Outpatient (BNVA) | payer OTHER, SELFPAY | PROVIDERS: PCP Nurse Practitioner Family; Visit Provider Nurse Practitioner Family | DX: E11.9 Type 2 diabetes mellitus without complications (principal); E78.2 Mixed hyperlipidemia | CPT/HCPCS: 80053; 80061; 82043; 82951; 83036; 84681; 86337; 86341 ==

== ENCOUNTER → 2025-03-22 10:24 | Outpatient (BNVA) | payer OTHER, SELFPAY | PROVIDERS: PCP Nurse Practitioner Family; Visit Provider Nurse Practitioner Family | DX: M79.10 Myalgia, unspecified site (principal); M25.50 Pain in unspecified joint; R21 Rash and other nonspecific skin eruption | CPT/HCPCS: 85651; 86038; 86140; 86200 ==

== ENCOUNTER 2025-05-04 09:56 | Outpatient (CLI) | payer OTHER, SELFPAY ==
[2025-05-04 11:06] LABS: Hematocrit 39.1 % (36-47); Hemoglobin 12.40 g/dL (11.27-16.99); Mean Corpuscular HGB Conc 31.7 g/dL (30-55); Mean Corpuscular Hemoglobin 24.1 pg (27-33); Mean Corpuscular Volume 75.9 fl (85-98); Nucleated Red Blood Cells % 0 %; Platelet Count 300 10^3/cmm (157-399); Red Blood Count 5.15 10^6/uL (3.85-5.65); White Blood Count 12.73 10^3/uL (3.29-11.43)
[2025-05-04 11:32] LABS: Alanine Aminotransferase 25 U/L (0-33); Albumin Level 4.4 g/dL (3.5-5.2); Alkaline Phosphatase 89 U/L (35-105); Anion Gap 22.6 (5-19); Aspartate Amino Transferase 17 U/L (0-32); Blood Urea Nitrogen 13 mg/dL (6-20); Calcium 9.2 mg/dL (8.5-10.5); Carbon Dioxide 23 mmol/L (22-29); Chloride 98 mmol/L (98-107); Globulin 3.3 g/dL (1.3-4.6); Glucose 208 mg/dL (65-115); Osmolality Calculated 294 mOsm/kg (285-295); Potassium 4.6 mmol/L (3.5-5.1); Sodium 139 mmol/L (136-145); Total Protein 7.7 g/dL (6.6-8.7)
[2025-05-05 08:05] LABS: PROTEIN, TOTAL 7.3 g/dL (6.1-8.1)
== END 2025-05-04 09:57 | disposition home or self-care (01) ==
PROVIDERS: PCP Nurse Practitioner Family; Visit Provider Dermatology
DX: E85.9 Amyloidosis, unspecified (principal)
CPT/HCPCS: 80053; 82784; 83883; 84155; 84165; 85025; 86334

== ENCOUNTER 2025-05-09 12:17 | Outpatient (CLI) | payer OTHER, SELFPAY ==
[2025-05-13 13:54] LABS: Protein/Creatinine Ratio 0.140 (<0.150); Protein/Creatinine Ratio 140 mg/g creat (<150)
[2025-05-14 11:50] LABS: ALPHA-1-GLOBULINS 0 %; ALPHA-2-GLOBULINS 0 %; BETA GLOBULINS 0 %; GAMMA GLOBULINS 0 %
== END 2025-05-09 12:18 | disposition home or self-care (01) ==
LOC: LAB 12:18
PROVIDERS: PCP Nurse Practitioner Family; Visit Provider Dermatology
DX: Z01.89 Encounter for other specified special examinations (principal)
CPT/HCPCS: 82570; 84166; 86335

== ENCOUNTER 2025-05-18 08:54 | Outpatient (CLI) | payer OTHER, SELFPAY | END 2025-05-18 08:55 | disposition home or self-care (01) | PROVIDERS: PCP Nurse Practitioner Family; Visit Provider Dermatology | DX: M35.1 Other overlap syndromes (principal) | CPT/HCPCS: 36415; 86160; 86235 ==

== ENCOUNTER 2025-06-06 10:13 | Outpatient (CLI) | payer OTHER, SELFPAY ==
--- NOTE | 2025-06-06 10:20 | MM_ITS ---
WS: [id number] BILATERAL SCREENING DIGITAL TOMOSYNTHESIS MAMMOGRAM WITH CAD HISTORY: SCREENING COMPARISON: 05/10/2024, 05/05/2023, Bilateral CC and MLO views with tomosynthesis and synthetic mammography submitted. Computer aided detection analyzed. Breast composition: The breasts are heterogeneously dense, which may obscure small masses. No suspicious masses, microcalcifications or architectural distortion. Numerous scattered asymmetries in each breast. No new asymmetry or distortion. MM/MM [facility] tomosynthesis [id number] IMPRESSION: BI-RADS: 2 - Benign FOLLOW UP: 1 Year Follow-up
== END 2025-06-06 10:14 | disposition home or self-care (01) ==
LOC: MOBLMAM 10:14
PROVIDERS: PCP Nurse Practitioner Family; Visit Provider Nurse Practitioner Family
DX: Z12.31 Encounter for screening mammogram for malignant neoplasm of breast (principal); R92.333 Mammographic heterogeneous density, bilateral breasts; N64.89 Other specified disorders of breast
CPT/HCPCS: 77063; 77067